=== PATIENT | male | born 1940 | race Caucasian/White ===

== ENCOUNTER → 2016-07-17 | Outpatient (CLI) | payer OTHER ==
[~2016-07-17] MED LIST: ASPI81TA21 PO; ATEN25TA PO; ATOR-24 PO; CIPR-255 PO; DLCSR120 PO; INSDGI SC; LISI-725 PO; METF-383 PO; NVLGI SC; OMEP20CA59 PO; OXYC-57 PO; TIOTCAP INH
[2016-07-17 13:10] LABS: ESTIMATED AVERAGE GLUCOSE 126 mg/dl; HA1C FLAG Normal (Normal)
[2016-07-17 13:33] LABS: BLOOD UREA NITROGEN 34 mg/dl (7-18); BUN/CREATININE RATIO 24.2 (10-20); GLUCOSE 145 mg/dl (70-99); SODIUM 139 mmol/L (136-145)
[2016-07-17 13:34] LABS: ALT/SGPT 17 U/L (12-78); AST/SGOT 15 U/L (15-37); CALCIUM 9.3 mg/dl (8.5-10.1); CARBON DIOXIDE 27 mmol/L (21-32); CHLORIDE 107 mmol/L (98-107); POTASSIUM 5.6 mmol/L (3.5-5.1)
[2016-07-17 13:39] LABS: ALB/GLOB RATIO 0.7 (0.9-2); ALKALINE PHOSPHATASE 140 U/L (45-117)
== END | disposition home or self-care (01) ==
LOC: C.LABPVFM 10:23
PROVIDERS: ATTEND Nurse Practitioner Adult Health
DX: E11.8 Type 2 diabetes mellitus with unspecified complications (principal); I10 Essential (primary) hypertension; E87.5 Hyperkalemia

== ENCOUNTER → 2016-07-24 | Outpatient (CLI) | payer OTHER | END | disposition home or self-care (01) | LOC: C.LABPVFM 09:14 | PROVIDERS: ATTEND Family Medicine | DX: E87.5 Hyperkalemia (principal) ==

== ENCOUNTER 2016-08-29 13:31 | Inpatient (IN) | payer OTHER ==
[~2016-08-29] VITALS: Ht 180.3 cm; Wt 128.0 kg
[~2016-08-29 13:31] MED LIST changes: -CIPR-255 PO; -OXYC-57 PO
[2016-08-29] MEDS ORDERED: MoRPHine SULFATE 10 MG/ML CARP/VIAL IV STA (14:22)
[2016-08-29] MEDS ORDERED: ONDANSETRON INJ 2 MG/ML 2 ML VIAL IV STA (14:22)
[2016-08-29] MEDS ORDERED: SODIUM CHLORIDE 0.9% 1000ML 1,000 ML IV STA (14:22)
[2016-08-29 14:30] LABS: BASO % 0.1 %; BASO ABS # 0.01 K/uL (0-0.2); COMPLETE YES; EOS % 1.5 %; HEMATOCRIT 42.9 % (42-52); IG% 0.2 %; LYMPH % 11.4 %; LYMPH ABS # 0.92 K/uL (1.2-3.4); MEAN CELL VOLUME 94.1 fL (80-100); MEAN CORPUSCULAR HEMOGLOBIN 31.6 pg (25-34); MEAN CORPUSCULAR HGB CONC 33.6 g/dl (32-36); MEAN PLATELET VOLUME 10.4 fL (7.4-10.4); MONO % 7.8 %; PLATELET COUNT 207 K/uL (130-400); RED BLOOD COUNT 4.56 M/uL (4.7-6.1)
[2016-08-29 14:41] LABS: BUN/CREATININE RATIO 25.7 (10-20); CALCIUM 9.2 mg/dl (8.5-10.1); CREATININE 1.4 mg/dl (0.60-1.40); POTASSIUM 4.9 mmol/L (3.5-5.1)
[2016-08-29 15:03] LABS: URINE APPEARANCE CLEAR (CLEAR); URINE BILIRUBIN NEG (NEG); URINE COLOR YELLOW; URINE NITRITE NEG (NEG); URINE SPECIFIC GRAVITY 1.023 (1.000-1.030); UROBILINOGEN NEG (NEG)
[2016-08-29 15:10] LABS: MANUAL MICROSCOPIC REQUIRED? NO; REVIEW REQ? NO
--- NOTE | 2016-08-29 15:18 | DIAGNOSTIC IMAGING REPORT ---
ABDOMEN 2VIEW W/PA CHEST RTN CLINICAL HISTORY: ABDOMINAL PAIN/GI nausea COMPARISON STUDY: 05/29/2015 FINDINGS: Chronic parenchymal fibrosis stable from the prior exam. Unchanged emphysematous change with inflammation of the mid to upper lung regions bilaterally. No evidence for new or superimposed acute infiltrate. Nonobstructive bowel pattern. IMPRESSION: Extensive chronic and emphysematous change. No acute process. Negative abdomen Electronically signed by: Pritesh Jordan M.D. 08/29/2016 3:17 PM Dictated Date/Time: 08/29/2016 3:16 PM
[2016-08-29] MEDS ORDERED: HYDROmorphone INJ 1 MG/ML SYR IV STA (15:27)
[2016-08-29] MEDS ORDERED: OPTIRAY 320 IV PRN (17:30)
--- NOTE | 2016-08-29 18:13 | DIAGNOSTIC IMAGING REPORT ---
CT OF THE ABDOMEN AND PELVIS WITH CONTRAST CLINICAL HISTORY: Abdominal pain radiating into back. Distention. COMPARISON STUDY: Chest CT May 30, 2015. TECHNIQUE: Following IV administration of 115 mL of Optiray-320, axial images of the abdomen and pelvis were obtained from the lung bases to the proximal femurs. Images were reviewed in the axial, sagittal, and coronal planes. IV contrast was administered without complication. Oral contrast was administered. CT DOSE: 1689.87 mGy.cm FINDINGS: Visualized portions of the lower chest demonstrate moderate cardiomegaly. A mildly enlarged subcarinal lymph node is partially imaged on since exam but is similar to CT of May 30, 2015. Bullous emphysema is noted within visualized portions of the lungs with traction bronchiectasis and possible honeycombing. A few right lower lobe nodules are noted. These measure up to 1.4 cm. These are indeterminate. No pneumatosis, free air or portal venous gas is present. There is mild intrahepatic biliary ductal dilatation. There is a diverticulum of the second portion of the duodenum. There are gallstones within the gallbladder. There is mild pericholecystic infiltration. The spleen, adrenal glands are unremarkable. A 1 cm right renal cyst is noted. There is moderate renal cortical thinning. There is no hydronephrosis. There is no evidence for a bowel obstruction. The appendix is normal. There is no pelvic lymphadenopathy. There is no peripancreatic infiltration. There is a splenule. IMPRESSION: 1. Cholelithiasis with mild pericholecystic infiltration. The findings raise the possibility of acute cholecystitis. A hepatobiliary scan could be obtained as indicated. 2. Severe bullous emphysema within visualized portions of the lungs with traction bronchiectasis and possible honeycombing. Several indeterminate right lower lobe nodules measuring up to 1.4 cm. A follow-up nonemergent dedicated chest CT is recommended. 3. Borderline biliary ductal dilatation which could be correlated with obstructive liver function tests. Electronically signed by: Kostas Allen M.D. 08/29/2016 6:11 PM Dictated Date/Time: 08/29/2016 6:01 PM
[2016-08-29] MEDS ORDERED: PIPERACILLIN/TAZOBACTAM 4.5 GM/100ML D5W IV STA (18:48)
--- NOTE | 2016-08-29 18:48 | EMERGENCY ROOM VISIT NOTE ---
ED Visit Note First contact with patient: 14:03 Patient was seen by our PA/CHEESEMAKING LABORER. I was involved in the patient's care and did evaluate the patient myself. I was involved in the care throughout the ER stay. The patient presents with abdominal pain. Workup here suggests early acute cholecystitis. Surgery has been contacted. Admission/observation was advised.
[2016-08-29] MEDS ORDERED: HydrALAZINE HCL 20 MG/ML VIAL IV PRN (19:00)
[2016-08-29] MEDS ORDERED: LORAZEPAM 2 MG/ML 1 ML VIAL IV PRN ×2 (19:00)
[2016-08-29] MEDS ORDERED: ALBUT/IPRATROP 3MG/0.5MG NEB 3 ML VIAL INH PRN (19:00)
[2016-08-29] MEDS ORDERED: MoRPHine SULFATE 4 MG/ML 1 ML CARP\\VIAL IV PRN (19:00)
[2016-08-29] MEDS ORDERED: ONDANSETRON INJ 2 MG/ML 2 ML VIAL IV PRN (19:00)
[2016-08-29] MEDS ORDERED: HYDROmorphone INJ 0.5 MG/0.5 ML SYR IV PRN (19:30)
[2016-08-29] MEDS ORDERED: GLUCOSE 40% GEL 15 GM TUBE PO PRN (20:00)
[2016-08-29] MEDS ORDERED: PIPERACILL/TAZOBAC CONSULT ACTIVE PRN (20:00)
[2016-08-29] MEDS ORDERED: GLUCOSE 10 TABS/TUBE PO PRN (20:00)
[2016-08-29] MEDS ORDERED: DEXTROSE 50% 50 ML SYR IV PRN (20:00)
[2016-08-29] MEDS ORDERED: GLUCAGON FOR INJ 1 MG VIAL SQ PRN (20:00)
[2016-08-29] MEDS: HYDROmorphone INJ 1 MG/ML SYR IV PRN (20:31)
[2016-08-29 20:41] VITALS: BP 137/71; PULSE 77; TEMP 36.4; O2SAT 95
[2016-08-29] MEDS ORDERED: HEPARIN SOD 5000 UNIT/0.5 ML CARP SQ ONE (21:00)
[2016-08-29] MEDS ORDERED: INSULIN GLARGINE PER SC SCH (21:00)
[2016-08-29] MEDS ORDERED: PIPERACILL/TAZOBAC IV 4.5 GM in DEXTROSE 5% 100ML 100 ML IV ONE (21:00)
[2016-08-29] MEDS ORDERED: LORAZEPAM INJ 1 MG in SYRINGE 0.5 ML IV PRN (21:00)
[2016-08-29 21:30] VITALS: PULSE 80; O2SAT 92
[2016-08-29] MEDS: ALBUT/IPRATROP 3MG/0.5MG NEB 3 ML VIAL INH SCH (21:30)
[2016-08-29 22:00] VITALS: Ht 180.3 cm; Wt 128.0 kg
--- NOTE | 2016-08-29 22:30 | DIAGNOSTIC IMAGING REPORT ---
ABDOMINAL ULTRASOUND, RIGHT UPPER QUADRANT HISTORY: Right upper quadrant pain. Abnormal CT scan. COMPARISON: CT of the abdomen and pelvis August 29, 2016. FINDINGS: This exam is compromised by suboptimal penetration. No hepatic lesions are identified. There are multiple gallstones within the gallbladder. No sonographic Coy sign was elicited. Gallbladder wall thickness was at the upper limits of normal. There was no pericholecystic fluid. The pancreas was obscured. No right hydronephrosis was noted. Common bile duct was at the upper limits of normal for caliber. IMPRESSION: 1. Cholelithiasis. No significant gallbladder wall thickening. No sonographic Coy sign. A hepatobiliary scan could be obtained as indicated. 2. Obscured pancreas. Study compromised by suboptimal penetration. Electronically signed by: Kostas Allen M.D. 08/29/2016 10:29 PM Dictated Date/Time: 08/29/2016 10:26 PM
[2016-08-29] MEDS: SODIUM CHLORIDE 0.9% 1000ML 1,000 ML IV SCH (22:34)
[2016-08-29] MEDS: PANTOprazole SOD 40 MG TAB PO SCH (22:35)
[2016-08-29] MEDS: INSULIN GLARGINE SOLOSTAR 100 UNITS/ML 3 ML PEN SC SCH (22:37)
[2016-08-29 23:28] VITALS: BP 134/63; PULSE 89; TEMP 36.5; O2SAT 96
[2016-08-29 23:52] VITALS: PULSE 86; O2SAT 96
[2016-08-30] VITALS (14 sets, daily range): BP systolic 109–165; BP diastolic 66–95; PULSE 68–94; TEMP 36.4–36.6; O2SAT 91–97
--- NOTE | 2016-08-30 00:23 | HISTORY & PHYSICAL EXAMINATION ---
DATE OF ADMISSION: 08/29/2016 Seen in the Emergency Room on 08/29/2016 at approximately 7:15 in the evening. SUMMARY: I was asked by the PA in the ER to see Abhinav Carlson, regarding possibility of gallbladder problem with acute cholecystitis. Dr. Fleming had also been asked to see him because of the past medical history this gentleman has which includes obesity, pulmonary fibrosis, insulin-dependent diabetic. As I saw the gentleman now, he is resting comfortably with no real abdominal discomfort. His daughter and son are at the bedside. The story was that last night he had a steak and this morning he started having abdominal pain going through the back. It progressively got worse that he thought he was having a heart attack and came into the Emergency Room. On the Emergency Room findings was, they obtained a CAT scan, think it was diffuse abdominal pain and back pain and found to have cholelithiasis with some inflammatory changes, really could not tell any wall thickness as far as the gallbladder, had some mild biliary dilatation. The patient has been a patient of Dr. 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 His past cardiac history included a heart attack at age 50, he is 76 now and he states that he had balloons at that time and repeated, he has never had any more cardiac issues, although he does see Dr. Silva on routine basis. Other than that, he has had no previous abdominal surgeries. Overall, enjoying pretty good health. MEDICATIONS: Takes routinely is aspirin, atenolol, Lipitor, Dilacor, insulin, Zestril, metformin, Prilosec, and Spiriva. ALLERGIES: He has no known allergies. SOCIAL HISTORY: He is a nonsmoker or drinker. REVIEW OF SYSTEMS: He denies any changes in weight, any GI or symptoms. PHYSICAL EXAMINATION: GENERAL: As I see him now, see Abhinav in no acute distress. As stated, he has a very large abdomen with a BMI of 40. HEAD: Normocephalic. EYES: PERRLA. Sclerae nonicteric. NECK: There is no cervical lymphadenopathy. Carotid are without any bruits. He states he has had carotid Dopplers in the past that never show any blockage and he denies any neurological deficits or TIAs. LUNGS: Distant breath sounds. HEART: Normal sinus rhythm without any murmur. ABDOMEN: Diffuse is distended. He has got significant right upper quadrant guarding but no rebound at this time. There is no appreciable hernias. EXTREMITIES: He apparently has a +1 or +2 pedal edema, +1 on the left foot and possibly +2 on the right and he takes a diuretic regularly. ASSESSMENT AND PLAN: At this time, the patient will be admitted to be evaluated by the medical service and will tentatively plan for surgery tomorrow including laparoscopic cholecystectomy, intraoperative cholangiogram. His white count is 8.10 without a significant left shift, hemoglobin is 14.4. The chemistries show a bilirubin, AST and ALT is normal, but the alkaline phosphatase is slightly elevated. With the back pain, the possibility that he may have passed a stone, although his lipase is 90. He is scheduled to have an ultrasound at this time and we will evaluate if there is any significant ductal dilatation, but we will plan to do a laparoscopic cholecystectomy with an intraoperative cholangiogram for tomorrow. Risks and complications were explained to the patient and his family would like to proceed accordingly.
[2016-08-30] MEDS: INSULIN ASPART 100 UNITS/ML 3 ML PEN SC SCH ×4 (00:44→20:13)
[2016-08-30] MEDS: PIPERACILL/TAZOBAC IV 4.5 GM in DEXTROSE 5% 100ML 100 ML IV SCH ×3 (01:35→19:49)
[2016-08-30] MEDS: HYDROmorphone INJ 1 MG/ML SYR IV PRN ×3 (06:10→21:28)
--- NOTE | 2016-08-30 07:03 | HISTORY & PHYSICAL EXAMINATION ---
DATE OF ADMISSION: 08/29/2016 CHIEF COMPLAINT: Abdominal pain. ADMITTING DIAGNOSIS: Acute cholecystitis. HISTORY OF PRESENT ILLNESS: Mr. Carlson is a 76-year-old male who presented to the ER complaining of mid quadrant abdominal pain. The patient states this was acute onset approximately 2-4 hours prior to presentation. The pain is constant but waxes and wanes with intensity. He does not describe any exacerbating or remitting symptoms. He has never had a previous or similar pain. The patient has had no change in bowel function, change in color, consistency of his stool, nor he has any urinary changes. After evaluation, patient had a CT scan of the abdomen which showed acute cholecystitis with pericholecystic fat stranding. The gallbladder wall thickness was not described and ultrasound is currently pending. The patient has been seen by surgery in the Emergency Department and there is a tentative plan for possible cholecystectomy in the next few days. PAST MEDICAL HISTORY: Idiopathic pulmonary fibrosis with chronic hypoxic respiratory failure, wearing 2 liters of oxygen. He also has obstructive sleep apnea, wearing CPAP at night at 14 cm of water; diabetes type 2; coronary artery disease; dyslipidemia; hypertension; GERD; history of diverticulosis. MEDICATIONS: On presentation are aspirin 81 a day, atenolol 25 mg a day, atorvastatin 40 mg a day, diltiazem XR 120 mg a day, Lantus 36 units at bedtime and sliding scale, lisinopril has been reduced to 10 mg a day, metformin 850 a day, Spiriva 1 inhalation a day, and omeprazole 20 a day. SOCIAL HISTORY: The patient does have a [id number] history of smoking, he currently has quit. Does not drink alcohol. He is accompanied by his family. FAMILY HISTORY: Diabetes, hypertension, heart disease, and lung disease. REVIEW OF SYSTEMS: Ten systems were reviewed and are negative unless listed above. PHYSICAL EXAMINATION: GENERAL: He is an obese gentleman with a BMI of 39. VITAL SIGNS: His temperature 36.6, pulse 72, respiration rate 20, BP 153/63, O2 sat 90 on room air. HEENT: PERRL, EOMI. He has a very small posterior pharynx. NECK: Without lymphadenopathy. Trachea is midline. HEART: Distant, regular without murmurs. LUNGS: Actually have very few crackles at the bases, otherwise have reasonable air movement with no focal air loss or wheeze. ABDOMEN: Protuberant. He has hypoactive bowel sounds. He is uncomfortable in the right upper quadrant with a positive Coy sign; however, there is no rebound tenderness. There is some voluntary guarding. He has a bruise in his abdomen from insulin injection. BACK: His back is tender to movement, most in the right infrascapular area. His spine is nontender. He has no CV angle tenderness. EXTREMITIES: Without cyanosis, clubbing or edema. SKIN: He has cyanotic nailbeds despite his oximetry reading 96%. NEUROLOGICALLY: He is awake, alert and appropriate. Cranial nerves II-XII are intact. Equal symmetrical strength and sensation. LABORATORY DATA: White count of 8, H\T\H 14 and 42, platelet count 207. His BUN and creatinine of 36 and 1.4, his total bilirubin is however normal at 0.4. His glucose is slightly elevated at 177, lipase is normal. Urinalysis is unremarkable. The CT scan shows pericholecystic fluid, changes of COPD in his lungs. He had chest and abdomen x-ray which did show chronic COPD. An EKG was ordered but is currently pending at my time of dictation. Anesthesia was consulted for possible preoperative risk minimizing for this patient. ASSESSMENT: A 76-year-old male with apparent acute cholecystitis, here with abdominal pain. PLAN: The patient for his acute cholecystitis will be kept n.p.o. He will be given Zosyn as an antibiotic and pain control with parenteral hydromorphone. For his diabetes, his Lantus will be reduced to 50% and sliding scale insulin may be employed. He is currently n.p.o. For his cardiovascular disease, he will be maintained on his atenolol and diltiazem and lisinopril. He, however, takes 10 mg and not 20 mg as mentioned above and that will be amended. His atorvastatin will be held. For his idiopathic pulmonary fibrosis, Spiriva will be continued; however, he will also be given DuoNebs. If not mentioned above, his metformin has been held. He is given 1 dose of DVT prevention heparin subQ 5000 this evening as he is not going to the OR until tomorrow or later if he goes at all. This patient is a full code.
[2016-08-30] MEDS: SODIUM CHLORIDE 0.9% 1000ML 1,000 ML IV SCH ×3 (07:07→19:50)
[2016-08-30 07:35] LABS: HEMATOCRIT 38.8 % (42-52); MEAN CELL VOLUME 93.5 fL (80-100); MEAN CORPUSCULAR HEMOGLOBIN 31.1 pg (25-34); MEAN CORPUSCULAR HGB CONC 33.2 g/dl (32-36); MEAN PLATELET VOLUME 10.5 fL (7.4-10.4); PLATELET COUNT 190 K/uL (130-400); RED BLOOD COUNT 4.15 M/uL (4.7-6.1); WHITE BLOOD COUNT 16.98 K/uL (4.8-10.8)
[2016-08-30] MEDS: ALBUT/IPRATROP 3MG/0.5MG NEB 3 ML VIAL INH SCH ×4 (07:35→20:09)
[2016-08-30 07:51] LABS: BUN/CREATININE RATIO 23.9 (10-20); CALCIUM 8.3 mg/dl (8.5-10.1); CREATININE 1.6 mg/dl (0.60-1.40); POTASSIUM 5.3 mmol/L (3.5-5.1)
[2016-08-30 07:54] LABS: ALB/GLOB RATIO 0.6 (0.9-2)
[2016-08-30] MEDS ORDERED: MIDAZOLAM HCL 1 MG/ML 2ML VIAL ONE (07:58)
[2016-08-30] MEDS ORDERED: ROCURONIUM BROMIDE 10 MG/ML 5 ML VIAL ONE (07:58)
[2016-08-30] MEDS ORDERED: GLYCOPYRROLATE INJ 0.2 MG/ML VIAL ONE (07:58)
[2016-08-30] MEDS ORDERED: NEOSTIGMINE METHYLSULFATE 5 MG/5 ML SYR ONE (07:58)
[2016-08-30] MEDS ORDERED: DEXAMETHASONE SOD INJ 4 MG/ML VIAL ONE (07:58)
[2016-08-30] MEDS ORDERED: LIDOCAINE HCL 2% 2 ML VIAL (20MG/ML) ONE (07:58)
[2016-08-30] MEDS ORDERED: ONDANSETRON INJ 2 MG/ML 2 ML VIAL ONE (07:58)
[2016-08-30] MEDS ORDERED: FENTANYL CITRATE INJ 50 MCG/1 ML 2 ML VIAL ONE ×2 (07:58→09:51)
[2016-08-30] MEDS ORDERED: PROPOFOL IV EMULSION 10 MG/ML 20 ML VIAL IV ONE (07:58)
--- NOTE | 2016-08-30 07:58 | History & Physical Bridge Note ---
H&P Re-Evaluation Bridge Note: I have examined the patient, reviewed the History & Physical and in the interval since the performance of the History & Physical I have noted the following changes of clinical significance: No changes noted note from this morning dictated not typed yet, pt in preop area as per my due note proceed with angelina navarrete
[2016-08-30] MEDS ORDERED: PNEUMOCOCCAL POLYSACCHARIDES 25 MCG/0.5 ML VIAL/SYR IM. ONE (08:00)
[2016-08-30] MEDS ORDERED: PNEUMOCOCCAL ADMINISTRATION CHARGE ONE (08:00)
--- NOTE | 2016-08-30 08:02 | Clinical Documentation Query ---
SAVI Sewell : CLINICAL DOCUMENTATION QUERY Patient is a 76 year old male admitted for the evaluation and treatment of acute cholecystitis. Admission BUN, creatinine, and estimated GFR were 36 mg/dl, 1.40 mg/dl, and 49 ml/min. Values this a.m. (08/30) are 38 mg/dl, 1.60 mg/dl, and 42 ml/min. There is no documentation of CKD but estimated GFR range dating to 09/24/14 is 42-78 ml/min. He is recieving IVF of NSS at 100 ml/hr and being monitored with serial chemistries. 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 Clinical Indicators: As above Treatment:He is recieving IVF of NSS at 100 ml/hr and being monitored with serial chemistries Risk Factors: Age, poor intake, DM Please clarify and document your clinical opinion in the progress notes and discharge summary. Terms such as "probable", "suspected", "likely", "questionable", "possible", or "still to be ruled out" are acceptable. IF IN AGREEMENT, YOU MUST DOCUMENT ABOVE DIAGNOSTIC STATEMENT IN DAILY PROGRESS NOTES AND DISCHARGE SUMMARY. This document is not part of the patient's record. Thank You, Matthew Guan, BARB [phone]
[2016-08-30] MEDS ORDERED: CONRAY 60% 50 ML VIAL ONE (08:07)
[2016-08-30] MEDS ORDERED: LIDOCAINE/EPINEPHRINE 1% 20 ML VIAL ONE (08:07)
[2016-08-30] MEDS ORDERED: BUPIVACAINE 0.5 % 5 MG/1 ML MPF 30ML VIAL ONE (08:08)
--- NOTE | 2016-08-30 08:30 | SURGERY PROGRESS NOTE ---
DATE: 08/30/2016 Abhinav had an ultrasound last night, it pretty much confirms that ct scan and clinical basis for acute cholecystitis. He is resting comfortably. He does have some right upper quadrant guarding as he had. His last vitals showed a temperature of 36.6, pulse 68, respirations 18, blood pressure 109/95 and O2 sats 97 on room air. I\T\O; he had 150 of urine. Laboratory; his white count is up to 16.98 and hemoglobin is 12.9. The PRPs are pending. At this point, we will proceed with surgery this morning. Risks and complications were explained to the patient of bleeding, infection, converting to an open procedure and he understands of the laparoscopic cholecystectomy, cholangiogram, possible open . STEPHANIE
[2016-08-30] MEDS ORDERED: LISINOPRIL 20 MG TAB PO SCH (09:00)
--- NOTE | 2016-08-30 09:18 | DIAGNOSTIC IMAGING REPORT ---
INTRAOPERATIVE CHOLANGIOGRAM HISTORY: Post cholecystectomy. FLUOROSCOPY TIME: 8 seconds. 5 fluoroscopic spot images. FINDINGS: Fluoroscopy was provided for an intraoperative cholangiogram status post cholecystectomy. Contrast was injected through the cystic duct remnant. The common bile duct is normal in course and caliber. There are no filling defects seen within the common bile duct to suggest a retained stone. Contrast extends into the small bowel. There is no intrahepatic bile duct dilatation. IMPRESSION: Fluoroscopy provided for an intraoperative cholangiogram status post cholecystectomy. No filling defects within the common bile duct. Electronically signed by: Boy Le M.D. 08/30/2016 9:16 AM Dictated Date/Time: 08/30/2016 9:16 AM
--- NOTE | 2016-08-30 09:28 | [facility] Post Operative Brief Note ---
Immediate Operative Summary Operative Date Aug 30, 2016. Pre-Operative Diagnosis acute cholecystitis cholelithiasis Post-Operative Diagnosis acute cholecystitis (gangrenous) Procedure(s) Performed laparoscopic cholecystectomy, intraoperative cholangiogram Surgeon Dr Manish Colorado Splicing Machine Operator Surgeon(s) Brock Patricio PA-C Estimated Blood Loss 15cc Findings necrotic gallbladder Specimens A: Gallbladder Culture #1: gallbladder Drains #19 malka per stab
--- NOTE | 2016-08-30 09:47 | OPERATIVE REPORT ---
DATE OF OPERATION: 08/30/2016 PREOPERATIVE DIAGNOSIS: Acute and chronic cholecystitis, cholelithiasis. POSTOPERATIVE DIAGNOSIS: Same with gangrenous cholecystitis. PROCEDURE: Laparoscopic cholecystectomy, intraoperative cholangiogram. SURGEON: Dr. [place]. TITRATOR: Brock Parisi PA-C. OPERATION AND FINDINGS: SUMMARY: The patient was brought into the operating room theater. The abdomen was prepped with Betadine solution and properly draped. We made a small transverse incision above the umbilicus sufficient enough to place a Veress needle followed by CO2 followed by a 5 mm trocar. Point of entry inspected and no injury identified. Under direct visualization, we placed a 5 mm epigastric port with preemptive local analgesia of 0.5 Marcaine and 2 subcostal ports. The gallbladder could not be seen. It seemed like he had a drape of omentum over it. We were able then to try to grasp it, but it was very thick walled, unable to really grasp it sufficiently therefore we aspirated initially and just got some dark bowel. Even with that, the wall was pretty thickened that the large graspers could barely hold onto it but it seemed to dissect out just by the grabber and we could see that the wall itself of the gallbladder was patchy necrosis. We at this point, were able then to finally go up towards the triangle of Calot. Most of the dissection was done bluntly with the sucker, significant amount of edema was identified. We identified the cystic duct which we clipped proximally. A small opening in the cystic duct was made. A #4 urethral catheter transversed the abdominal wall and an Angiocath was positioned. We took a few x-rays. The common bile duct did not have any filling defect, however the distal common bile duct was slow to empty into the duodenum. I thought there was a little rat-tailing sign and possibility of some debris, but we really did not see any filling defects per se. At this point the cholangiocath was removed and the cystic duct was doubly clipped and divided securely. The gallbladder was then removed. Most of the dissection taking out the gallbladder from the liver was done bluntly since the posterior wall and edema made it easier. We identified an artery going up towards the gallbladder into the liver that we doubly clipped and divided. Gallbladder in the uppermost aspect towards the fundus we could see that there was strictly adherent to the liver in that area. We made sure that we took all the gallbladder wall out entering the liver just slightly cauterized the bleeding. Gallbladder was placed in an Endopouch and taken out intact through the epigastric port. We needed to enlarge the skin incision a little bit to get it out. We did take cultures of it. The subhepatic and suprahepatic area was then checked for hemostasis quite satisfactorily. We then placed a Jeffery drain in the subhepatic area and taken out through the lateral port site, attached to skin edges with 2-0 silk suture. We placed the camera in subcostal port to visualize the umbilical opening. There were no adhesions to the anterior abdominal wall there. Individual trocars removed, last umbilical trocar. Wounds were closed with fascial stitch 0 Vicryl for the epigastric area, the other ones 4-0 Monocryl. Steri-Strips applied. The procedure was tolerated well by the patient. Estimated blood loss approximately 15 mL. The patient was taken to recovery room in good condition. I attest to the content of the Intraoperative Record and any orders documented therein. Any exceptio ns are noted below.
[2016-08-30] MEDS ORDERED: ALBUTEROL HFA INHALER 8.5 GM INH ONE (09:54)
[2016-08-30] MEDS ORDERED: EpHEDrine SULFATE INJ 50 MG/ML AMP IV PRN (10:00)
[2016-08-30] MEDS ORDERED: ONDANSETRON INJ 2 MG/ML 2 ML VIAL IV PRN (10:00)
[2016-08-30] MEDS ORDERED: ATROPINE SULFATE 0.1 MG/ML 5ML SYR IV PRN (10:00)
[2016-08-30] MEDS ORDERED: FENTANYL CITRATE INJ 50 MCG/1 ML 2 ML VIAL IV PRN (10:00)
[2016-08-30] MEDS: TIOTROPIUM BROMIDE 5 PUFF/90 MCG INH INH SCH (10:45)
[2016-08-30] MEDS: LISINOPRIL 10 MG TAB PO SCH ×2 (10:46→14:03)
[2016-08-30] MEDS: DILTIAZEM HCL 120 MG ER CAP PO SCH ×2 (10:46→14:03)
[2016-08-30] MEDS: HEPARIN SOD 5000 UNIT/0.5 ML CARP SQ SCH ×2 (10:50→21:33)
[2016-08-30] MEDS: HYDROmorphone INJ 0.5 MG/0.5 ML SYR IV PRN ×2 (11:00→13:53)
--- NOTE | 2016-08-30 11:44 | Anesthesiology Progress Note ---
Anesthesia Post Op Note Date & Time Aug 30, 2016 at 11:43 Vital Signs Vital Signs Past 12 Hours Date Time Temp Pulse Resp B/P Pulse Ox O2 Delivery O2 Flow Rate FiO2 08/30/16 11:23 87 18 92 Nasal Cannula 2.0 08/30/16 11:00 81 18 155/79 93 Room Air 08/30/16 10:36 36.5 85 18 148/72 94 Nasal Cannula 3.0 08/30/16 10:10 37.3 83 20 125/59 94 Nasal Cannula 4 08/30/16 10:00 87 20 141/58 94 Nasal Cannula 4 08/30/16 09:50 88 20 142/58 94 Nasal Cannula 5 08/30/16 09:40 95 22 152/54 94 Nasal Cannula 5 08/30/16 09:31 37.1 92 22 139/62 97 Nasal Cannula 5 08/30/16 07:35 Nasal Cannula 2.0 08/30/16 07:35 87 18 92 Nasal Cannula 2.0 08/30/16 07:08 36.6 68 18 109/95 97 Room Air 08/29/16 23:52 86 96 2.0 Notes Mental Status: alert / awake / arousable, participated in evaluation Pt Amnestic to Procedure: Yes Nausea / Vomiting: adequately controlled Pain: adequately controlled Airway Patency, RR, SpO2: stable & adequate BP & HR: stable & adequate Hydration State: stable & adequate Anesthetic Complications: no major complications apparent
--- NOTE | 2016-08-30 14:25 | Hospitalist Progress Note ---
Hospitalist Progress Note Date of Service Aug 30, 2016. (Candida Strange PA-C) Subjective Pt evaluation today including: conversation w/ patient, physical exam, chart review, lab review, review of studies, review of inpatient medication list Patient complaining of some abdominal pain in the right upper quadrant. He denies any nausea. He has not yet passed gas or had any bowel movements since the surgery. He just got back from surgery approximately 2 hours ago. He denies any fever or chills. No chest pain or pressure. No difficulty breathing. Additional Comments: 6 system review negative. Please see pertinent positives in the history of present illness section. (Candida Strange PA-C) Objective Vital Signs Date Time Temp Pulse Resp B/P Pulse Ox O2 Delivery O2 Flow Rate FiO2 08/30/16 13:30 83 16 165/79 93 Nasal Cannula 3.0 08/30/16 12:30 84 18 155/79 94 Nasal Cannula 3.0 08/30/16 11:30 87 18 157/77 93 Nasal Cannula 3.0 08/30/16 11:23 87 18 92 Nasal Cannula 2.0 08/30/16 11:00 81 18 155/79 93 Nasal Cannula 3.0 08/30/16 10:36 36.5 85 18 148/72 94 Nasal Cannula 3.0 08/30/16 10:30 94 Nasal Cannula 3.0 08/30/16 10:10 37.3 83 20 125/59 94 Nasal Cannula 4 08/30/16 10:00 87 20 141/58 94 Nasal Cannula 4 08/30/16 09:50 88 20 142/58 94 Nasal Cannula 5 08/30/16 09:40 95 22 152/54 94 Nasal Cannula 5 08/30/16 09:31 37.1 92 22 139/62 97 Nasal Cannula 5 08/30/16 07:35 Nasal Cannula 2.0 08/30/16 07:35 87 18 92 Nasal Cannula 2.0 08/30/16 07:08 36.6 68 18 109/95 97 Room Air 08/29/16 23:52 86 96 2.0 08/29/16 23:28 36.5 89 16 134/63 96 CPAP 08/29/16 23:25 CPAP 08/29/16 22:00 Nasal Cannula 2.0 08/29/16 21:39 36.6 80 18 153/63 92 08/29/16 21:30 80 18 92 Nasal Cannula 2.0 08/29/16 20:41 36.4 77 18 137/71 95 Nasal Cannula 2.0 08/29/16 20:00 36.6 72 20 153/63 98 08/29/16 19:08 72 08/29/16 18:32 68 20 153/63 98 Room Air 08/29/16 15:30 58 20 114/54 98 Nasal Cannula 2.0 08/29/16 14:55 50 (Candida Strange PA-C) Physical Exam General Appearance: no apparent distress ENT: + pertinent finding (oral mucosa fairly dry) Neck: no JVD Respiratory/Chest: lungs clear Cardiovascular: regular rate, rhythm Abdomen: soft, + distended (mildly distended.), + pertinent finding ( tenderness to palpation noted in the right upper quadrant. No guarding or rebound tenderness. Bowel sounds hypoactive.) Extremities: + pertinent finding (trace pitting edema in the lower extremities bilaterally without any appreciated erythema, tenderness or warmth.) Neurologic/Psychiatric: no motor/sensory deficits, oriented x 3 Skin: warm/dry (Candida Strange, LATRICE-C) Laboratory Results 08/30/16 07:05 08/30/16 07:05 Test 08/29/16 14:50 08/30/16 07:05 08/30/16 11:51 Urine Color YELLOW Urine Appearance CLEAR (CLEAR) Urine pH 5.0 (4.5-7.5) Urine Specific Letts 1.023 (1.000-1.030) Urine Protein NEG (NEG) Urine Glucose (UA) NEG (NEG) Urine Ketones NEG (NEG) Urine Occult Blood NEG (NEG) Urine Nitrite NEG (NEG) Urine Bilirubin NEG (NEG) Urine Urobilinogen NEG (NEG) Urine Leukocyte Esterase NEG (NEG) Red Blood Count 4.15 M/uL (4.7-6.1) Mean Corpuscular Volume 93.5 fL (80-100) Mean Corpuscular Hemoglobin 31.1 pg (25-34) Mean Corpuscular Hemoglobin Concent 33.2 g/dl (32-36) RDW Standard Deviation 47.1 fL (36.4-46.3) RDW Coefficient of Variation 13.9 % (11.5-14.5) Mean Platelet Volume 10.5 fL (7.4-10.4) Anion Gap 10.0 mmol/L (3-11) Est Creatinine Clear Calc Drug Dose 54.4 ml/min Estimated GFR () 48.1 Estimated GFR (Non- 41.5 BUN/Creatinine Ratio 23.9 (10-20) Calcium Level 8.3 mg/dl (8.5-10.1) Total Bilirubin 0.6 mg/dl (0.2-1) Aspartate Amino Transf (AST/SGOT) 11 U/L (15-37) Alanine Aminotransferase (ALT/SGPT) 15 U/L (12-78) Alkaline Phosphatase 103 U/L (45-117) Total Protein 6.5 gm/dl (6.4-8.2) Albumin 2.5 gm/dl (3.4-5.0) Globulin 4.0 gm/dl (2.5-4.0) Albumin/Globulin Ratio 0.6 (0.9-2) Bedside Glucose 221 mg/dl (70-99) Last 24 Hours Test 08/29/16 14:50 08/29/16 20:36 08/30/16 00:04 08/30/16 05:51 Urine Color YELLOW Urine Appearance CLEAR Urine pH 5.0 Urine Specific Letts 1.023 Urine Protein NEG Urine Glucose (UA) NEG Urine Ketones NEG Urine Occult Blood NEG Urine Nitrite NEG Urine Bilirubin NEG Urine Urobilinogen NEG Urine Leukocyte Esterase NEG Bedside Glucose 137 mg/dl 186 mg/dl 162 mg/dl Test 08/30/16 07:05 08/30/16 09:54 08/30/16 11:51 White Blood Count 16.98 K/uL Red Blood Count 4.15 M/uL Hemoglobin 12.9 g/dL Hematocrit 38.8 % Mean Corpuscular Volume 93.5 fL Mean Corpuscular Hemoglobin 31.1 pg Mean Corpuscular Hemoglobin Concent 33.2 g/dl RDW Standard Deviation 47.1 fL RDW Coefficient of Variation 13.9 % Platelet Count 190 K/uL Mean Platelet Volume 10.5 fL Sodium Level 138 mmol/L Potassium Level 5.3 mmol/L Chloride Level 107 mmol/L Carbon Dioxide Level 21 mmol/L Anion Gap 10.0 mmol/L Blood Urea Nitrogen 38 mg/dl Creatinine 1.60 mg/dl Est Creatinine Clear Calc Drug Dose 54.4 ml/min Estimated GFR () 48.1 Estimated GFR (Non- 41.5 BUN/Creatinine Ratio 23.9 Random Glucose 195 mg/dl Calcium Level 8.3 mg/dl Total Bilirubin 0.6 mg/dl Aspartate Amino Transf (AST/SGOT) 11 U/L Alanine Aminotransferase (ALT/SGPT) 15 U/L Alkaline Phosphatase 103 U/L Total Protein 6.5 gm/dl Albumin 2.5 gm/dl Globulin 4.0 gm/dl Albumin/Globulin Ratio 0.6 Bedside Glucose 184 mg/dl 221 mg/dl (Candida Strange PA-C) Assessment and Plan 76-year-old male presents emergency department with right upper quadrant abdominal pain. Found to have acute cholecystitis per CT Acute cholecystitis status post left upper cholecystectomy for gangrenous gallbladder on 08/30 -Continue pain control with Dilaudid 0.5 mg IV every hour -Diet per surgery -Continue Zofran 4 mg every 6 hours IV as needed for nausea -Bowel regimen with Colace 100 mg po twice a day -Continue Zosyn Acute renal insufficiency-? Etiology unclear. The patient is borderline hypotensive with master on board. It could be prerenal in nature. The patient hasn't however urinated much since surgery. -Bladder scan -Insert Crowell catheter for > 400 mL urine -Recheck PRP at 1800 hrs. -Keep normal saline running at 80 mL/h for now -hold master Mild hyperkalemia -Recheck PRP at 1800 hrs. Diabetes mellitus -Continue decreased dose of Lantus at 18 units tonight as it is unclear how much the patient will tolerate po -Continue coverage with NovoLog insulin sliding scale Pulmonary fibrosis/chronic respiratory failure on 2 L of oxygen per nasal cannula at all times -Continue O2 and Spiriva Obstructive sleep apnea -Continue CPAP at night Hypertension-BP was slightly low, however it is improved now -Continue outpatient regimen: Atenolol 25 mg daily, diltiazem XL 120 mg daily -Hold Master secondary to renal function Hyperlipidemia -Continue atorvastatin 40 mg daily GERD -Continue pantoprazole 40 mg daily while in house. -May resume omeprazole upon discharge DVT prophylaxis -Heparin 5000 u subQ BID -TEDS, SCDs CODE STATUS -LEVEL I FULL CODE (Candida Strange PA-C) I agree with PA assessment and plan and have seen and examined pt myself Resting comfortably in bed Noted right flank pain Asking for diet Cont antibx at this time Labs reviewed (Kip Hanson D.O.)
[2016-08-30] MEDS ORDERED: NURSING VERBAL MED ORDER ONE (17:00)
[2016-08-30] MEDS ORDERED: HYDROmorphone INJ 0.5 MG/0.5 ML SYR IV PRN (17:15)
[2016-08-30 18:45] LABS: BUN/CREATININE RATIO 21.5 (10-20); CALCIUM 8.5 mg/dl (8.5-10.1); CREATININE 1.9 mg/dl (0.60-1.40); POTASSIUM 4.7 mmol/L (3.5-5.1)
[2016-08-30] MEDS: DOCUSATE SODIUM 100 MG CAP PO SCH (21:27)
[2016-08-30] MEDS: PANTOprazole SOD 40 MG TAB PO SCH (21:27)
[2016-08-30] MEDS: INSULIN GLARGINE SOLOSTAR 100 UNITS/ML 3 ML PEN SC SCH (21:32)
--- NOTE | 2016-08-30 21:33 | EMERGENCY ROOM VISIT NOTE ---
ED Visit Note First contact with patient: 14:03 Chief Complaint: Abdominal pain. History of Present Illness: Mr. Carlson is a 76 year-old white male who ambulates into the ED accompanied by his daughter and son complaining of bilateral mid quadrant abdominal pain. Historically patient reports no significant gastrointestinal disorders or abdominal surgeries Patient reports a acute onset of bilateral mid quadrant quadrant abdominal pain that started approximately 3-4 hours ago. Since that time the pain has been constant but has slightly waxed and waned in intensity. He describes his pain as a sharp sensation. The pain is radiating around the abdomen and into the lower thoracic area. The pain worsens with palpation. He has not identified any alleviating factors related to the pain. He has taken Pepto-Bismol without relief of his discomfort. Associated with his pain he reports she's been nauseated but has not vomited and he feels his abdomen is distended. He has never previously had similar pain. Patient denies fevers, chills, sweats, skin eruptions, skin color changes, upper respiratory tract symptoms, shortness of breath, chest pain, diarrhea, constipation, rectal bleeding, black/tarry stools, urinary symptoms, hematuria. Review of Systems: As noted above in history of present illness. All body systems were reviewed and found to be negative as noted above. Past Medical History: Diabetes, heart disease, hypertension, pneumonia, emphysema, status post angioplasty, idiopathic pulmonary fibrosis. Current Medications: Medications Dose Route/Sig Max Daily Dose Days Date Category Dose Instructions Lantus (Insulin Glargine) 100 Unit/Ml Inj 36 Units SC HS 01/03/16 Reported Glucophage (Metformin Hcl) 850 Mg Tab 850 Mg PO QPM 01/03/16 Reported Lipitor (Atorvastatin Calcium) 40 Mg Tab 40 Mg PO HS 05/29/15 Reported Novolog (Insulin Aspart) 100 Unit/ Inj 0 SC TIDM 01/22/12 Reported PER SLIDING SCALE Ecotrin Or Generic (Aspirin) 81 Mg Tab 81 Mg PO QAM 01/22/12 Reported Dilacor Xr * (Diltiazem HCl) 120 Mg Ercap 120 Mg PO QAM 01/22/12 Reported Spiriva Handihaler (Tiotropium [place]) 18 Mcg/ Aerp 1 Cap INH QAM 01/22/12 Reported Prilosec (Omeprazole) 20 Mg Capcr 20 Mg PO HS 8/28/12 Reported Zestril (Lisinopril) 20 Mg Tab 20 Mg PO QAM 01/22/12 Reported Tenormin (Atenolol) 25 Mg Tab 25 Mg PO QAM 01/22/12 Reported Allergies to Medications: Patient denies. Social History: Patient is not employed; he lives with his family and feels safe in his home environment and denies tobacco and alcohol use. Physical Examination: Vital Signs: Date Time Temp Pulse Resp B/P Pulse Ox O2 Delivery O2 Flow Rate FiO2 08/29/16 18:32 68 20 153/63 98 Room Air 08/29/16 15:30 58 20 114/54 98 Nasal Cannula 2.0 08/29/16 14:55 50 08/29/16 13:44 36.6 62 20 137/66 98 Nasal Cannula 2.0 GENERAL: 76-year-old male in moderate distress due to pain, nontoxic-appearing, afebrile and hemodynamically stable. NEUROLOGICAL: Awake, alert and oriented to person, place and time. Answering questions appropriately and following commands. Normal gait. Good hand eye coordination. SKIN: Warm, dry and pink. No soft tissue eruptions or trauma noted. HEENT: Atraumatic and normocephalic. PERRLA. Sclera white and conjunctiva pink. Oral cavity moist and pink. Pharynx is nonerythematous or edematous. Speech normal. No lymphadenopathy. Trachea midline. No jugular venous distention. BACK: No tenderness over the bony spine. No CVA tenderness. THORAX: Lungs sounds are clear to auscultation and equal bilaterally with symmetrical chest wall. No wheezing, rales or rhonchi. No crepitus, tenderness , subcutaneous air or deformities noted. HEART: Regular rate and rhythm. No gallops, rubs or murmurs are appreciated. ABDOMEN: Protuberant and soft with moderate tenderness through the mid quadrant bilaterally. Decreased bowel sounds in all quadrants. No guarding, rigidity or organomegaly. EXTREMITIES: Moves all extremities well on command and with purpose. All distal neurovascular statuses are intact and equal bilaterally. ED Course: Patient is assessed as noted above. Laboratory Testing: Test 08/29/16 14:00 08/29/16 14:50 Range/Units White Blood Count 8.10 4.8-10.8 K/uL Red Blood Count 4.56 4.7-6.1 M/uL Hemoglobin 14.4 14.0-18.0 g/dL Hematocrit 42.9 42-52 % Mean Corpuscular Volume 94.1 80-100 fL Mean Corpuscular Hemoglobin 31.6 25-34 pg Mean Corpuscular Hemoglobin Concent 33.6 32-36 g/dl Platelet Count 207 130-400 K/uL Mean Platelet Volume 10.4 7.4-10.4 fL Neutrophils (%) (Auto) 79.0 % Lymphocytes (%) (Auto) 11.4 % Monocytes (%) (Auto) 7.8 % Eosinophils (%) (Auto) 1.5 % Basophils (%) (Auto) 0.1 % Neutrophils # (Auto) 6.40 1.4-6.5 K/uL Lymphocytes # (Auto) 0.92 1.2-3.4 K/uL Monocytes # (Auto) 0.63 0.11-0.59 K/uL Eosinophils # (Auto) 0.12 0-0.5 K/uL Basophils # (Auto) 0.01 0-0.2 K/uL RDW Standard Deviation 46.8 36.4-46.3 fL RDW Coefficient of Variation 13.7 11.5-14.5 % Immature Granulocyte % (Auto) 0.2 % Immature Granulocyte # (Auto) 0.02 0.00-0.02 K/uL Prothrombin Time 11.0 9.0-12.0 SECONDS Prothromb Time International Ratio 1.0 0.9-1.1 Sodium Level 138 136-145 mmol/L Potassium Level 4.9 3.5-5.1 mmol/L Chloride Level 106 98-107 mmol/L Carbon Dioxide Level 26 21-32 mmol/L Anion Gap 6.0 3-11 mmol/L Blood Urea Nitrogen 36 7-18 mg/dl Creatinine 1.40 0.60-1.40 mg/dl Est Creatinine Clear Calc Drug Dose 62.2 ml/min Estimated GFR () 56.6 Estimated GFR (Non- 48.8 BUN/Creatinine Ratio 25.7 10-20 Random Glucose 177 70-99 mg/dl Calcium Level 9.2 8.5-10.1 mg/dl Total Bilirubin 0.4 0.2-1 mg/dl Direct Bilirubin 0.1 0-0.2 mg/dl Aspartate Amino Transf (AST/SGOT) 13 15-37 U/L Alanine Aminotransferase (ALT/SGPT) 21 12-78 U/L Alkaline Phosphatase 131 45-117 U/L Total Protein 7.6 6.4-8.2 gm/dl Albumin 3.0 3.4-5.0 gm/dl Lipase 90 73-393 U/L Urine Color YELLOW Urine Appearance CLEAR CLEAR Urine pH 5.0 4.5-7.5 Urine Specific Nerinx 1.023 1.000-1.030 Urine Protein NEG NEG Urine Glucose (UA) NEG NEG Urine Ketones NEG NEG Urine Occult Blood NEG NEG Urine Nitrite NEG NEG Urine Bilirubin NEG NEG Urine Urobilinogen NEG NEG Urine Leukocyte Esterase NEG NEG Acute Abdominal Series: Was read by myself and the radiologist showing no acute infiltrates, effusions or pneumothorax. Extensive chronic and emphysema changes. Abdominal component shows a nonspecific bowel gas pattern without signs of infection. No free air was identified. Contrast Abdominal/Pelvic CT: Shows cholelithiasis with mild per a cholecystectomy filtration consistent with an acute cholecystitis. Borderline biliary ductal dilatation. Severe bulbous emphysema within visual portions of the lung field and several intermittent right lower lobe nodules. Gallbladder Ultrasound: Was reviewed by myself and read by the radiologist showing cholelithiasis without significant gallbladder wall thickening, sonographic Coy sign. Suboptimal penetration to visualize the pancreas. Patient was hydrated with normal saline and he received initially 6 mg of morphine IV for pain and 4 mg of Zofran IV. He reported only minimal improvement from the morphine and was given 1 mg of the Dilaudid IV. On reassessment he reported subjectively he was feeling much better. Patient was reassessed multiple times during his stay in the emergency department. Patient's case was reviewed with Dr. Vernon; we agreed on diagnostic approach, treatment, disposition and plan. Patient's case was consulted with case management and Dr. [place], general surgery; he recommended gallbladder ultrasound and admission by hospitalist for later surgical intervention. Patient's case was consulted with Dr. Fleming, hospitalist; for medical observation/admission. Patient and family members were educated about imani's findings. Clinical Impression: Acute cholecystitis. Decision-Making: Initially my differential diagnosis I considered bowel obstruction, perforated viscus, constipation, hepatitis, pancreatitis, cholecystitis, kidney infection, ureter calculus and other causes. Disposition and Plan: Please see Dr. Fleming and orders for final disposition and plan.
[2016-08-31] VITALS (12 sets, daily range): BP systolic 121–156; BP diastolic 64–76; PULSE 71–113; TEMP 36.3–36.8; O2SAT 88–96
[2016-08-31] MEDS: INSULIN ASPART 100 UNITS/ML 3 ML PEN SC SCH ×5 (01:12→21:24)
[2016-08-31] MEDS: LORAZEPAM INJ 0.5 MG in SYRINGE 0.75 ML IV PRN ×2 (01:32→23:32)
[2016-08-31] MEDS: PIPERACILL/TAZOBAC IV 4.5 GM in DEXTROSE 5% 100ML 100 ML IV SCH ×3 (01:33→20:03)
[2016-08-31] MEDS: HYDROmorphone INJ 1 MG/ML SYR IV PRN (05:49)
[2016-08-31] MEDS: SODIUM CHLORIDE 0.9% 1000ML 1,000 ML IV SCH (07:00)
[2016-08-31] MEDS: ALBUT/IPRATROP 3MG/0.5MG NEB 3 ML VIAL INH SCH ×4 (07:47→20:05)
--- NOTE | 2016-08-31 07:53 | SURGERY PROGRESS NOTE ---
DATE: 08/31/2016 DATE: 08/31/2016. Abhinav is first postoperative day status laparoscopic cholecystectomy, cholangiogram for acute and chronic cholecystitis. He is sitting at the side of bed, feeling really well. He has minimal right upper quadrant pain as he had yesterday. His last vitals showed a temperature of 36.8, a pulse 81, respirations 18, blood pressure 129/69, O2 sats 96 on 3 liters for CPAP. I\T\O, he had 250 urine overnight. The Jeffery drainage is 60, serosanguineous, nonbilious. The abdomen is that it is fairly benign. His main concern he wants to eat, therefore we will start him on a diabetic diet. He stated that the food in the hospital is so good and try to keep him here a while so he can take advantage of it. From my point of view at this time, I will leave the Jeffery drainage in, discharge him when okay with the medical service. I think probably he should continue on some Cipro for another 5 days after discharge. We will see him back in the office in approximately 1 week.
[2016-08-31 08:14] LABS: HEMATOCRIT 39.6 % (42-52); MEAN CELL VOLUME 93.8 fL (80-100); MEAN CORPUSCULAR HGB CONC 34.1 g/dl (32-36); MEAN PLATELET VOLUME 9.9 fL (7.4-10.4); PLATELET COUNT 172 K/uL (130-400); RED BLOOD COUNT 4.22 M/uL (4.7-6.1); WHITE BLOOD COUNT 13.25 K/uL (4.8-10.8)
[2016-08-31] MEDS: OXYCODONE/ACETAMINOPHEN 5-325 TAB PO PRN ×2 (08:14→20:03)
[2016-08-31] MEDS ORDERED: NURSING VERBAL MED ORDER ONE (08:15)
[2016-08-31] MEDS: TIOTROPIUM BROMIDE 5 PUFF/90 MCG INH INH SCH (08:18)
[2016-08-31] MEDS: DOCUSATE SODIUM 100 MG CAP PO SCH ×2 (08:18→21:20)
[2016-08-31] MEDS: HEPARIN SOD 5000 UNIT/0.5 ML CARP SQ SCH ×2 (08:20→21:24)
[2016-08-31] MEDS: DILTIAZEM HCL 120 MG ER CAP PO SCH (08:22)
--- NOTE | 2016-08-31 08:35 | Anesthesiology Progress Note ---
Anesthesia Post Op Note Date & Time Aug 31, 2016 at 08:34 Vital Signs Pain Intensity: 8.0 Vital Signs Past 12 Hours Date Time Temp Pulse Resp B/P Pulse Ox O2 Delivery O2 Flow Rate FiO2 08/31/16 07:47 94 18 89 Nasal Cannula 3.0 08/31/16 06:50 36.5 88 16 133/76 92 Nasal Cannula 3.0 08/31/16 03:35 36.8 81 18 129/69 96 CPAP 08/30/16 23:50 Nasal Cannula 2.0 CPAP 08/30/16 23:25 91 93 3.0 08/30/16 22:54 36.6 93 17 142/66 92 Nasal Cannula 3.0 Notes Mental Status: alert / awake / arousable, participated in evaluation Pt Amnestic to Procedure: Yes Nausea / Vomiting: adequately controlled Pain: adequately controlled Airway Patency, RR, SpO2: stable & adequate BP & HR: stable & adequate Hydration State: stable & adequate Anesthetic Complications: no major complications apparent
[2016-08-31 08:45] LABS: BUN/CREATININE RATIO 24.7 (10-20); CALCIUM 8.9 mg/dl (8.5-10.1); CREATININE 1.7 mg/dl (0.60-1.40); POTASSIUM 4.4 mmol/L (3.5-5.1)
[2016-08-31 08:48] LABS: ALB/GLOB RATIO 0.6 (0.9-2)
[2016-08-31] MEDS ORDERED: OXYC-57 PO (11:04)
[2016-08-31] MEDS ORDERED: CIPR-255 PO (11:04)
--- NOTE | 2016-08-31 14:12 | Hospitalist Progress Note ---
Hospitalist Progress Note Date of Service Aug 31, 2016. (Candida Strange PA-C) Subjective Pt evaluation today including: conversation w/ patient, physical exam, chart review, lab review, review of inpatient medication list Patient denies any significant pain. He has not yet passed gas. No bowel movements. He is not feeling nauseated, actually he is hungry. No fever or chills. Denies any dizziness. Additional Comments: 6 system review negative. Please see pertinent positives in the history of present illness section. (Candida Strange PA-C) Objective Vital Signs Date Time Temp Pulse Resp B/P Pulse Ox O2 Delivery O2 Flow Rate FiO2 08/31/16 11:22 36.7 96 18 156/72 94 Nasal Cannula 3.0 08/31/16 11:22 71 18 93 Nasal Cannula 2.0 08/31/16 08:15 94 121/65 08/31/16 07:50 Nasal Cannula 2.0 08/31/16 07:47 94 18 89 Nasal Cannula 3.0 08/31/16 06:50 36.5 88 16 133/76 92 Nasal Cannula 3.0 08/31/16 03:35 36.8 81 18 129/69 96 CPAP 08/30/16 23:50 Nasal Cannula 2.0 CPAP 08/30/16 23:25 91 93 3.0 08/30/16 22:54 36.6 93 17 142/66 92 Nasal Cannula 3.0 08/30/16 20:24 36.4 86 18 153/86 91 Nasal Cannula 3.0 08/30/16 19:05 80 18 95 Nasal Cannula 3.0 08/30/16 16:40 Nasal Cannula 3.0 08/30/16 15:41 84 18 95 Nasal Cannula 3.0 08/30/16 15:03 36.5 94 18 137/72 93 Nasal Cannula 3.0 (Candida Strange PA-C) Physical Exam General Appearance: no apparent distress Eyes: EOMI Neck: no JVD Respiratory/Chest: lungs clear Cardiovascular: regular rate, rhythm Abdomen: soft, + pertinent finding (mildly distended. Mild tenderness to palpation in the right upper quadrant. Soft. No rebound tenderness. Incisions intact. Serosanguineous drainage in the ALISE) Extremities: non-tender, + pertinent finding (+1 pitting edema in the lower extremities without any significant erythema, tenderness or warmth bilaterally) Neurologic/Psychiatric: no motor/sensory deficits, oriented x 3 Skin: warm/dry (Candida Strange PA-C) Laboratory Results 08/31/16 08:06 08/31/16 08:06 Test 08/31/16 08:06 08/31/16 12:00 Red Blood Count 4.22 M/uL (4.7-6.1) Mean Corpuscular Volume 93.8 fL (80-100) Mean Corpuscular Hemoglobin 32.0 pg (25-34) Mean Corpuscular Hemoglobin Concent 34.1 g/dl (32-36) RDW Standard Deviation 47.9 fL (36.4-46.3) RDW Coefficient of Variation 14.0 % (11.5-14.5) Mean Platelet Volume 9.9 fL (7.4-10.4) Anion Gap 13.0 mmol/L (3-11) Est Creatinine Clear Calc Drug Dose 51.2 ml/min Estimated GFR () 44.7 Estimated GFR (Non- 38.6 BUN/Creatinine Ratio 24.7 (10-20) Calcium Level 8.9 mg/dl (8.5-10.1) Total Bilirubin 0.6 mg/dl (0.2-1) Aspartate Amino Transf (AST/SGOT) 63 U/L (15-37) Alanine Aminotransferase (ALT/SGPT) 44 U/L (12-78) Alkaline Phosphatase 79 U/L (45-117) Total Protein 6.8 gm/dl (6.4-8.2) Albumin 2.5 gm/dl (3.4-5.0) Globulin 4.3 gm/dl (2.5-4.0) Albumin/Globulin Ratio 0.6 (0.9-2) Bedside Glucose 153 mg/dl (70-99) Last 24 Hours Test 08/30/16 18:10 08/30/16 20:02 08/31/16 00:54 08/31/16 05:37 Sodium Level 138 mmol/L Potassium Level 4.7 mmol/L Chloride Level 106 mmol/L Carbon Dioxide Level 20 mmol/L Anion Gap 12.0 mmol/L Blood Urea Nitrogen 41 mg/dl Creatinine 1.90 mg/dl Est Creatinine Clear Calc Drug Dose 45.8 ml/min Estimated GFR () 39.1 Estimated GFR (Non- 33.7 BUN/Creatinine Ratio 21.5 Random Glucose 267 mg/dl Calcium Level 8.5 mg/dl Bedside Glucose 250 mg/dl 225 mg/dl 185 mg/dl Test 08/31/16 08:06 08/31/16 08:15 08/31/16 12:00 White Blood Count 13.25 K/uL Red Blood Count 4.22 M/uL Hemoglobin 13.5 g/dL Hematocrit 39.6 % Mean Corpuscular Volume 93.8 fL Mean Corpuscular Hemoglobin 32.0 pg Mean Corpuscular Hemoglobin Concent 34.1 g/dl RDW Standard Deviation 47.9 fL RDW Coefficient of Variation 14.0 % Platelet Count 172 K/uL Mean Platelet Volume 9.9 fL Sodium Level 141 mmol/L Potassium Level 4.4 mmol/L Chloride Level 108 mmol/L Carbon Dioxide Level 20 mmol/L Anion Gap 13.0 mmol/L Blood Urea Nitrogen 42 mg/dl Creatinine 1.70 mg/dl Est Creatinine Clear Calc Drug Dose 51.2 ml/min Estimated GFR () 44.7 Estimated GFR (Non- 38.6 BUN/Creatinine Ratio 24.7 Random Glucose 141 mg/dl Calcium Level 8.9 mg/dl Total Bilirubin 0.6 mg/dl Aspartate Amino Transf (AST/SGOT) 63 U/L Alanine Aminotransferase (ALT/SGPT) 44 U/L Alkaline Phosphatase 79 U/L Total Protein 6.8 gm/dl Albumin 2.5 gm/dl Globulin 4.3 gm/dl Albumin/Globulin Ratio 0.6 Bedside Glucose 140 mg/dl 153 mg/dl (Candida Strange, PA-C) Assessment and Plan 76-year-old male presents emergency department with right upper quadrant abdominal pain. Found to have acute cholecystitis per CT Acute cholecystitis status post left upper cholecystectomy for gangrenous gallbladder on 08/30 -Transition Dilaudid IV to Percocet by mouth for pain -Diet advanced per surgery today. Patient is tolerating. -Bowel regimen with Colace 100 mg po twice a day -Continue Zosyn while in house. Cipro for 5 days upon d/c. -f/u with surgery in 1 week Acute renal insufficiency-? prerenal with mild hypotension. Creatinine slowly improving at 1.7 today -Monitor PRP -hold master Mild hyperkalemia-resolved Diabetes mellitus -Resume Lantus 36 units today -Continue coverage with NovoLog insulin sliding scale Pulmonary fibrosis/chronic respiratory failure on 2 L of oxygen per nasal cannula at all times -Continue O2 and Spiriva Obstructive sleep apnea -Continue CPAP at night Hypertension -Continue outpatient regimen: Atenolol 25 mg daily, diltiazem XL 120 mg daily -Hold Master secondary to renal function Hyperlipidemia -Continue atorvastatin 40 mg daily GERD -Continue pantoprazole 40 mg daily while in house. -May resume omeprazole upon discharge DVT prophylaxis -Heparin 5000 u subQ BID -TEDS, SCDs CODE STATUS -LEVEL I FULL CODE DISPO -PT/OT eval -Patient will likely be discharged home. He may need home healthcare or PT as an outpatient. 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
--- NOTE | 2016-08-31 18:06 | DIAGNOSTIC IMAGING REPORT ---
CHEST ONE VIEW PORTABLE HISTORY: Shortness of Breath and Tachycardic COMPARISON: Chest 09/27/2016. FINDINGS: Severe bullous emphysema is again noted. Bilateral mid to lower lung zone interstitial thickening remains unchanged. This could represent fibrotic change. No new focal lung consolidations. The heart remains borderline enlarged. No pneumothorax. IMPRESSION: No significant change compared to the prior study. No acute process. Severe bullous emphysema and bibasilar interstitial thickening/fibrotic change persists. No new focal lung consolidations. Electronically signed by: Boy Le M.D. 08/31/2016 6:04 PM Dictated Date/Time: 08/31/2016 6:03 PM
[2016-08-31] MEDS: PANTOprazole SOD 40 MG TAB PO SCH (21:20)
[2016-08-31] MEDS: INSULIN GLARGINE SOLOSTAR 100 UNITS/ML 3 ML PEN SC SCH (21:22)
[2016-09-01] VITALS (10 sets, daily range): BP systolic 132–143; BP diastolic 59–79; PULSE 85–141; TEMP 36.5–36.9; O2SAT 92–97
[2016-09-01] MEDS: PIPERACILL/TAZOBAC IV 4.5 GM in DEXTROSE 5% 100ML 100 ML IV SCH ×3 (01:38→19:47)
[2016-09-01 06:16] LABS: HEMATOCRIT 37.5 % (42-52); MEAN CELL VOLUME 91.7 fL (80-100); MEAN CORPUSCULAR HEMOGLOBIN 31.1 pg (25-34); MEAN CORPUSCULAR HGB CONC 33.9 g/dl (32-36); MEAN PLATELET VOLUME 10.3 fL (7.4-10.4); PLATELET COUNT 197 K/uL (130-400); RED BLOOD COUNT 4.09 M/uL (4.7-6.1); WHITE BLOOD COUNT 10.66 K/uL (4.8-10.8)
[2016-09-01 06:58] LABS: ALB/GLOB RATIO 0.5 (0.9-2); BUN/CREATININE RATIO 27.1 (10-20); CREATININE 1.7 mg/dl (0.60-1.40)
[2016-09-01] MEDS: ALBUT/IPRATROP 3MG/0.5MG NEB 3 ML VIAL INH SCH ×4 (07:36→19:50)
[2016-09-01] MEDS: TIOTROPIUM BROMIDE 5 PUFF/90 MCG INH INH SCH (09:24)
[2016-09-01] MEDS: DOCUSATE SODIUM 100 MG CAP PO SCH ×2 (09:25→21:51)
[2016-09-01] MEDS: DILTIAZEM HCL 120 MG ER CAP PO SCH (09:26)
[2016-09-01] MEDS: INSULIN ASPART 100 UNITS/ML 3 ML PEN SC SCH ×4 (09:34→21:45)
[2016-09-01] MEDS: HEPARIN SOD 5000 UNIT/0.5 ML CARP SQ SCH ×2 (09:35→21:43)
[2016-09-01] MEDS ORDERED: BISACODYL 5 MG TABEC PO ONE (09:45)
--- NOTE | 2016-09-01 10:34 | Surgery Progress Note ---
Surgery Progress Note Date of Service Sep 01, 2016. Subjective + feeling well, + pain controlled Gets full quickly. No nausea or vomiting. On regular diet. Objective Vital Signs: Date Time Temp Pulse Resp B/P Pulse Ox O2 Delivery O2 Flow Rate FiO2 09/01/16 10:05 94 Nasal Cannula 3.0 09/01/16 09:45 Room Air 09/01/16 08:00 36.5 85 20 138/59 94 Nasal Cannula 3.0 09/01/16 07:36 91 18 93 Nasal Cannula 2.0 08/31/16 23:41 CPAP 08/31/16 22:59 36.4 102 18 127/74 95 CPAP 08/31/16 22:43 110 95 3.0 08/31/16 20:05 102 18 89 Nasal Cannula 2.5 08/31/16 20:05 102 16 90 Nasal Cannula 3.0 08/31/16 17:17 36.7 113 20 143/64 90 Nasal Cannula 2.0 08/31/16 16:00 Nasal Cannula 2.0 08/31/16 15:46 92 18 90 Nasal Cannula 3.0 08/31/16 14:54 91 Nasal Cannula 3.0 08/31/16 14:53 36.3 92 16 121/69 88 Nasal Cannula 2.0 08/31/16 11:22 36.7 96 18 156/72 94 Nasal Cannula 3.0 08/31/16 11:22 71 18 93 Nasal Cannula 2.0 Physical Exam: ALISE drainage (110 cc serosanguinous) General Appearance: WD/WN, no apparent distress Respiratory/Chest: normal breath sounds, + pertinent finding (on oxygen (on at home also)) Cardiovascular: regular rate, rhythm Abdomen: normal bowel sounds, non tender, soft, + distended (mild) Incision(s): clean, dry, intact Laboratory Results: Results Past 24 Hours Test 08/31/16 12:00 08/31/16 17:10 08/31/16 20:19 09/01/16 05:53 Range/Units Bedside Glucose 153 213 211 70-99 mg/dl White Blood Count 10.66 4.8-10.8 K/uL Red Blood Count 4.09 4.7-6.1 M/uL Hemoglobin 12.7 14.0-18.0 g/dL Hematocrit 37.5 42-52 % Mean Corpuscular Volume 91.7 80-100 fL Mean Corpuscular Hemoglobin 31.1 25-34 pg Mean Corpuscular Hemoglobin Concent 33.9 32-36 g/dl RDW Standard Deviation 46.2 36.4-46.3 fL RDW Coefficient of Variation 13.9 11.5-14.5 % Platelet Count 197 130-400 K/uL Mean Platelet Volume 10.3 7.4-10.4 fL Test 09/01/16 05:58 09/01/16 07:46 Range/Units Sodium Level 140 136-145 mmol/L Potassium Level 4.0 3.5-5.1 mmol/L Chloride Level 108 98-107 mmol/L Carbon Dioxide Level 23 21-32 mmol/L Anion Gap 9.0 3-11 mmol/L Blood Urea Nitrogen 46 7-18 mg/dl Creatinine 1.70 0.60-1.40 mg/dl Est Creatinine Clear Calc Drug Dose 51.2 ml/min Estimated GFR () 44.7 Estimated GFR (Non- 38.6 BUN/Creatinine Ratio 27.1 10-20 Random Glucose 203 70-99 mg/dl Calcium Level 9.0 8.5-10.1 mg/dl Total Bilirubin 0.6 0.2-1 mg/dl Aspartate Amino Transf (AST/SGOT) 65 15-37 U/L Alanine Aminotransferase (ALT/SGPT) 54 12-78 U/L Alkaline Phosphatase 85 45-117 U/L Total Protein 6.7 6.4-8.2 gm/dl Albumin 2.3 3.4-5.0 gm/dl Globulin 4.4 2.5-4.0 gm/dl Albumin/Globulin Ratio 0.5 0.9-2 Bedside Glucose 186 70-99 mg/dl Assessment & Plan s/p lap winnie for gangrenous cholecystitis. Doing well. Leukocytosis resolved. Will aim for home tomorrow with drain in place.
--- NOTE | 2016-09-01 11:48 | Progress Note ---
Subjective Date of Service: Sep 01, 2016. Subjective Pt evaluation today including: conversation w/ patient, physical exam, chart review, lab review, review of studies, review of inpatient medication list STates still feeling weak but improved from yesterday Pain is mild, more cramp like in nature No acute events overnight Problem List Medical Problems: (1) Hypoxia Status: Acute (2) Pneumonia Status: Acute Review of Systems Constitutional: + fatigue, + weakness, No chills, No fever Eyes: No eye pain, No worsening of vision Respiratory: No cough, No shortness of breath, No sputum, No wheezing Cardiac: No chest pain, No orthopnea Abdomen: + pain, No constipation, No diarrhea, No nausea, No vomiting Musculoskeletal: No joint pain, No muscle pain Male : No dysuria, No urinary frequency Objective Vital Signs Date Time Temp Pulse Resp B/P Pulse Ox O2 Delivery O2 Flow Rate FiO2 09/01/16 10:05 94 Nasal Cannula 3.0 09/01/16 09:45 Room Air 09/01/16 08:00 36.5 85 20 138/59 94 Nasal Cannula 3.0 09/01/16 07:36 91 18 93 Nasal Cannula 2.0 08/31/16 23:41 CPAP 08/31/16 22:59 36.4 102 18 127/74 95 CPAP 08/31/16 22:43 110 95 3.0 08/31/16 20:05 102 18 89 Nasal Cannula 2.5 08/31/16 20:05 102 16 90 Nasal Cannula 3.0 08/31/16 17:17 36.7 113 20 143/64 90 Nasal Cannula 2.0 08/31/16 16:00 Nasal Cannula 2.0 08/31/16 15:46 92 18 90 Nasal Cannula 3.0 08/31/16 14:54 91 Nasal Cannula 3.0 08/31/16 14:53 36.3 92 16 121/69 88 Nasal Cannula 2.0 Physical Exam General Appearance: WD/WN, no apparent distress Neck: supple, no adenopathy Respiratory/Chest: lungs clear, normal breath sounds Cardiovascular: no edema, no gallop Abdomen: non tender, soft Neurologic/Psychiatric: no motor/sensory deficits, normal mood/affect Laboratory Results Last 24 Hours Test 08/31/16 12:00 08/31/16 17:10 08/31/16 20:19 09/01/16 05:53 Bedside Glucose 153 mg/dl 213 mg/dl 211 mg/dl White Blood Count 10.66 K/uL Red Blood Count 4.09 M/uL Hemoglobin 12.7 g/dL Hematocrit 37.5 % Mean Corpuscular Volume 91.7 fL Mean Corpuscular Hemoglobin 31.1 pg Mean Corpuscular Hemoglobin Concent 33.9 g/dl RDW Standard Deviation 46.2 fL RDW Coefficient of Variation 13.9 % Platelet Count 197 K/uL Mean Platelet Volume 10.3 fL Test 09/01/16 05:58 09/01/16 07:46 Sodium Level 140 mmol/L Potassium Level 4.0 mmol/L Chloride Level 108 mmol/L Carbon Dioxide Level 23 mmol/L Anion Gap 9.0 mmol/L Blood Urea Nitrogen 46 mg/dl Creatinine 1.70 mg/dl Est Creatinine Clear Calc Drug Dose 51.2 ml/min Estimated GFR () 44.7 Estimated GFR (Non- 38.6 BUN/Creatinine Ratio 27.1 Random Glucose 203 mg/dl Calcium Level 9.0 mg/dl Total Bilirubin 0.6 mg/dl Aspartate Amino Transf (AST/SGOT) 65 U/L Alanine Aminotransferase (ALT/SGPT) 54 U/L Alkaline Phosphatase 85 U/L Total Protein 6.7 gm/dl Albumin 2.3 gm/dl Globulin 4.4 gm/dl Albumin/Globulin Ratio 0.5 Bedside Glucose 186 mg/dl Assessment and Plan 6-year-old male presents emergency department with right upper quadrant abdominal pain. Found to have acute cholecystitis per CT Acute cholecystitis status post left upper cholecystectomy for gangrenous gallbladder on 08/30 -Transition Dilaudid IV to Percocet by mouth for pain -Diet advanced per surgery. . -Bowel regimen with Colace 100 mg po twice a day -Continue Zosyn while in house. Cipro for 5 days upon d/c. 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 -May resume omeprazole upon discharge DVT prophylaxis -Heparin 5000 u subQ BID -TEDS, SCDs CODE STATUS -LEVEL I FULL CODE
[2016-09-01] MEDS: OXYCODONE/ACETAMINOPHEN 5-325 TAB PO PRN ×2 (12:23→20:20)
[2016-09-01] MEDS: INSULIN GLARGINE SOLOSTAR 100 UNITS/ML 3 ML PEN SC SCH (21:45)
[2016-09-01] MEDS: PANTOprazole SOD 40 MG TAB PO SCH (21:51)
[2016-09-01] MEDS: LORAZEPAM INJ 0.5 MG in SYRINGE 0.75 ML IV PRN (23:31)
[2016-09-02] MEDS: PIPERACILL/TAZOBAC IV 4.5 GM in DEXTROSE 5% 100ML 100 ML IV SCH (01:57)
[2016-09-02 02:03] VITALS: PULSE 78
[2016-09-02 06:41] LABS: HEMATOCRIT 36.7 % (42-52); MEAN CELL VOLUME 92.2 fL (80-100); MEAN CORPUSCULAR HEMOGLOBIN 30.7 pg (25-34); MEAN CORPUSCULAR HGB CONC 33.2 g/dl (32-36); MEAN PLATELET VOLUME 10.6 fL (7.4-10.4); PLATELET COUNT 194 K/uL (130-400); RED BLOOD COUNT 3.98 M/uL (4.7-6.1); WHITE BLOOD COUNT 8.25 K/uL (4.8-10.8)
[2016-09-02 07:26] VITALS: BP 131/74; PULSE 82; TEMP 36.8; O2SAT 97
[2016-09-02 07:39] VITALS: PULSE 88; O2SAT 96
[2016-09-02] MEDS: ALBUT/IPRATROP 3MG/0.5MG NEB 3 ML VIAL INH SCH ×2 (07:39→11:45)
[2016-09-02 07:42] LABS: BUN/CREATININE RATIO 33.1 (10-20); CALCIUM 8.6 mg/dl (8.5-10.1); CREATININE 1.5 mg/dl (0.60-1.40); POTASSIUM 4.3 mmol/L (3.5-5.1)
[2016-09-02 07:43] LABS: ALB/GLOB RATIO 0.5 (0.9-2)
[2016-09-02] MEDS: DOCUSATE SODIUM 100 MG CAP PO SCH (09:15)
[2016-09-02] MEDS: TIOTROPIUM BROMIDE 5 PUFF/90 MCG INH INH SCH (09:15)
[2016-09-02] MEDS: DILTIAZEM HCL 120 MG ER CAP PO SCH (09:16)
[2016-09-02] MEDS: INSULIN ASPART 100 UNITS/ML 3 ML PEN SC SCH (09:54)
[2016-09-02] MEDS: HEPARIN SOD 5000 UNIT/0.5 ML CARP SQ SCH (09:54)
[2016-09-02] MEDS ORDERED: NURSING DECISION MEDICATION ORDER SCH (10:30)
--- NOTE | 2016-09-02 11:03 | Surgery Progress Note ---
Surgery Progress Note Date of Service Sep 02, 2016. Subjective Feels better than yesterday. Had a bowel movement. Tolerating diet. Tremors have improved. Feels ready for discharge. Objective Vital Signs: Date Time Temp Pulse Resp B/P Pulse Ox O2 Delivery O2 Flow Rate FiO2 09/02/16 07:39 88 18 96 Nasal Cannula 3.0 09/02/16 07:35 Nasal Cannula 2.0 09/02/16 07:26 36.8 82 18 131/74 97 3.0 09/02/16 02:03 78 09/01/16 23:48 CPAP 09/01/16 23:23 36.9 141 16 143/79 92 Room Air 09/01/16 22:36 120 97 3.0 09/01/16 19:54 125 20 93 Nasal Cannula 3.0 09/01/16 16:30 96 Nasal Cannula 3.0 09/01/16 16:00 115 18 96 Nasal Cannula 3.0 09/01/16 15:31 36.5 88 20 132/64 95 Nasal Cannula 3.0 09/01/16 11:51 36.9 100 26 134/74 95 Nasal Cannula 3.0 09/01/16 11:51 100 18 95 Nasal Cannula 3.0 Physical Exam: ALISE drainage (200 cc serous) General Appearance: no apparent distress Respiratory/Chest: no respiratory distress, no accessory muscle use Cardiovascular: regular rate, rhythm Abdomen: normal bowel sounds, non tender, non distended, soft Incision(s): clean, dry, intact Laboratory Results: Results Past 24 Hours Test 09/01/16 12:03 09/01/16 17:20 09/01/16 20:35 09/02/16 05:56 Range/Units Bedside Glucose 166 204 242 70-99 mg/dl White Blood Count 8.25 4.8-10.8 K/uL Red Blood Count 3.98 4.7-6.1 M/uL Hemoglobin 12.2 14.0-18.0 g/dL Hematocrit 36.7 42-52 % Mean Corpuscular Volume 92.2 80-100 fL Mean Corpuscular Hemoglobin 30.7 25-34 pg Mean Corpuscular Hemoglobin Concent 33.2 32-36 g/dl RDW Standard Deviation 46.3 36.4-46.3 fL RDW Coefficient of Variation 13.7 11.5-14.5 % Platelet Count 194 130-400 K/uL Mean Platelet Volume 10.6 7.4-10.4 fL Sodium Level 141 136-145 mmol/L Potassium Level 4.3 3.5-5.1 mmol/L Chloride Level 110 98-107 mmol/L Carbon Dioxide Level 22 21-32 mmol/L Anion Gap 9.0 3-11 mmol/L Blood Urea Nitrogen 50 7-18 mg/dl Creatinine 1.50 0.60-1.40 mg/dl Est Creatinine Clear Calc Drug Dose 58.0 ml/min Estimated GFR () 52.0 Estimated GFR (Non- 44.9 BUN/Creatinine Ratio 33.1 10-20 Random Glucose 175 70-99 mg/dl Calcium Level 8.6 8.5-10.1 mg/dl Total Bilirubin 0.8 0.2-1 mg/dl Aspartate Amino Transf (AST/SGOT) 41 15-37 U/L Alanine Aminotransferase (ALT/SGPT) 51 12-78 U/L Alkaline Phosphatase 90 45-117 U/L Total Protein 6.2 6.4-8.2 gm/dl Albumin 2.0 3.4-5.0 gm/dl Globulin 4.2 2.5-4.0 gm/dl Albumin/Globulin Ratio 0.5 0.9-2 Test 09/02/16 07:45 Range/Units Bedside Glucose 158 70-99 mg/dl Assessment & Plan s/p lap winnie for gangrenous cholecystitis. Doing well. Ready for discharge today. OK to go home with drain with plans for f/u within this week for drain removal.
--- NOTE | 2016-09-02 11:27 | Discharge Instructions ---
Discharge Instructions Date of Service Sep 02, 2016. Admission Reason for Admission: Acute Cholecystitis Discharge Discharge Diagnosis / Problem: Acute cholecytitis, urinary tract infection Discharge Goals Goal(s): Decrease discomfort, Improve function, Increase independence, Improve disease control, Diagnostic testing, Therapeutic intervention Activity Recommendations Activity Limitations: resume your previous activity Exercise/Sports Limitations: none . Instructions / Follow-Up Instructions / Follow-Up Patient to be discharged home Please take antibiotic cipro twice a day for 5 more days for urinary tract infection Please take percocet as directed and only as needed for pain Please follow up with general surgery as scheduled for drain management Current Hospital Diet Patient's current hospital diet: Diabetes Type 2 Diet Discharge Diet Recommended Diet: Diabetes Type 2 Diet Procedures Procedures Performed: laparoscopic cholecystectomy, intraoperative cholangiogram Pending Studies Studies pending at discharge: no Laboratory Results Hemoglobin A1c Test 07/17/16 10:35 Range/Units Estimated Average Glucose 126 mg/dl Hemoglobin A1c 6.0 H 4.5-5.6 % Medical Emergencies . Who to Call and When: Medical Emergencies: If at any time you feel your situation is an emergency, please call 911 immediately. . Non-Emergent Contact Non-Emergency issues call your: Primary Care Provider Call Non-Emergent contact if: you have a fever, your pain is worsening . . "Provider Documentation" section prepared by Kip Hanson. VTE Core Measure Inpt VTE Proph given/why not?: Unfractionated heparin SQ
--- NOTE | 2016-09-02 11:44 | Discharge Summary ---
Discharge Summary Date of Service Sep 02, 2016. Discharge Summary Admission Date: Aug 29, 2016 at 18:56 Discharge Date: Sep 02, 2016 Discharge Disposition: Home Principal Diagnosis: Acute cholecystitis, UTI Immunizations: Have You Had Influenza Vaccine: No History of Tetanus Vaccine?: Yes History of Pneumococcal: Yes History of Hepatitis B Vaccine: Unknown Consultations: General surgery Medication Reconciliation New Medications: Ciprofloxacin Hcl (Cipro) 500 Mg Tab 500 MG PO BID, #10 TAB Oxycodone/Acetaminophen 5MG/325MG (Percocet 5MG/325MG) Tab 1-2 TABLETS PO Q4H PRN for Pain, #30 TAB Discharge Exam Review of Systems: Constitutional: No chills, No fever Respiratory: No cough, No dyspnea on exertion, No shortness of breath, No sputum Cardiovascular: No chest pain, No orthopnea Abdomen: No nausea, No pain, No vomiting Musculoskeletal: No joint pain, No muscle pain Genitourinary - Male: No dysuria, No hematuria Neurologic: No paralysis, No weakness Physical Exam: General Appearance: WD/WN, no apparent distress Neck: supple, no adenopathy Respiratory/Chest: lungs clear, + wheezing Cardiovascular: no edema, no gallop Abdomen / GI: non tender, soft Neurologic/Psychiatric: alert, oriented x 3 Hospital Course 76-year-old male presents emergency department with right upper quadrant abdominal pain. Found to have acute cholecystitis per CT Acute cholecystitis status post left upper cholecystectomy for gangrenous gallbladder on 08/30 -Transition Dilaudid IV to Percocet by mouth for pain -Diet advanced per surgery. . -Bowel regimen with Colace 100 mg po twice a day -Continue Zosyn while in house. Cipro for 5 days upon d/c. 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 -May resume omeprazole upon discharge DVT prophylaxis -Heparin 5000 u subQ BID -TEDS, SCDs CODE STATUS -LEVEL I FULL CODE Total Time Spent: Greater than 30 minutes This includes examination of the patient, discharge planning, medication reconciliation, and communication with other providers. Discharge Instructions Please refer to the electronic Patient Visit Report (Discharge Instructions) for additional information. Additional Copies To Liliana Oliver M.D.
[2016-09-02 11:45] VITALS: PULSE 101; O2SAT 95
[2016-09-02 12:05] VITALS: BP 131/74; PULSE 101; TEMP 36.8; O2SAT 95
[2016-09-02] MEDS ORDERED: CIPROFLOXACIN 500 MG TAB PO SCH (21:00)
== END 2016-09-02 13:29 | disposition home or self-care (01) | DRG 418 ==
LOC: ENRESERVTM → ENRESERVDT → EDBD 13:31 → C.EDC 13:32 → C.MSN 18:56
PROVIDERS: ADMIT Internal Medicine; ATTEND Hospitalist
PROC: 0FT44ZZ Resection of Gallbladder, Percutaneous Endoscopic Approach (ICD-10-PCS; principal; 2016-08-30 11:15)
DX: K80.12 Calculus of gallbladder with acute and chronic cholecystitis without obstruction (principal); Z68.41 Body mass index [BMI] 40.0-44.9, adult; J96.10 Chronic respiratory failure, unspecified whether with hypoxia or hypercapnia; N39.0 Urinary tract infection, site not specified; N17.9 Acute kidney failure, unspecified; E87.5 Hyperkalemia; E66.9 Obesity, unspecified; J84.10 Pulmonary fibrosis, unspecified; E78.5 Hyperlipidemia, unspecified; K21.9 Gastro-esophageal reflux disease without esophagitis; I12.9 Hypertensive chronic kidney disease with stage 1 through stage 4 chronic kidney disease, or unspecified chronic kidney disease; G47.33 Obstructive sleep apnea (adult) (pediatric); N18.3 Chronic kidney disease, stage 3 (moderate); I25.10 Atherosclerotic heart disease of native coronary artery without angina pectoris; J43.9 Emphysema, unspecified; E11.9 Type 2 diabetes mellitus without complications; I25.2 Old myocardial infarction; Z98.62 Peripheral vascular angioplasty status; Z79.4 Long term (current) use of insulin; Z79.82 Long term (current) use of aspirin; Z99.81 Dependence on supplemental oxygen; Z87.891 Personal history of nicotine dependence; Z87.01 Personal history of pneumonia (recurrent); Z83.3 Family history of diabetes mellitus; Z82.49 Family history of ischemic heart disease and other diseases of the circulatory system; Z83.6 Family history of other diseases of the respiratory system

== ENCOUNTER → 2017-01-04 | Outpatient (CLI) | payer OTHER ==
[~2017-01-04] MED LIST changes: +CIPR-255 PO; +OXYC-57 PO
[2017-01-04 13:47] LABS: ESTIMATED AVERAGE GLUCOSE 123 mg/dl; HA1C FLAG Normal (Normal)
[2017-01-04 13:48] LABS: ALT/SGPT 19 U/L (12-78); BLOOD UREA NITROGEN 29 mg/dl (7-18); BUN/CREATININE RATIO 22.5 (10-20); CALCIUM 9.4 mg/dl (8.5-10.1); CARBON DIOXIDE 26 mmol/L (21-32); CHLORIDE 107 mmol/L (98-107); CHOLESTEROL 100 mg/dl (0-200); GLUCOSE 131 mg/dl (70-99); POTASSIUM 5.2 mmol/L (3.5-5.1); SODIUM 139 mmol/L (136-145); TRIGLYCERIDES 87 mg/dl (0-150); VERY LOW DENSITY LIPOPROT CALC 17 mg/dl
[2017-01-04 13:51] LABS: ALB/GLOB RATIO 0.6 (0.9-2); ALKALINE PHOSPHATASE 146 U/L (45-117); AST/SGOT 15 U/L (15-37); CHOLESTEROL/HDL RATIO 2.7; HDL CHOLESTEROL 37 mg/dl; LDL CHOLESTEROL CALCULATED 46 mg/dl
[2017-01-04 14:09] LABS: RATIO 45.4 mcg/mg (0-30.0)
== END | disposition home or self-care (01) ==
LOC: C.LABPVFM 08:21
PROVIDERS: ATTEND Family Medicine
DX: E11.39 Type 2 diabetes mellitus with other diabetic ophthalmic complication (principal); E78.5 Hyperlipidemia, unspecified; I10 Essential (primary) hypertension; E87.5 Hyperkalemia; K21.9 Gastro-esophageal reflux disease without esophagitis

== ENCOUNTER → 2017-01-14 | Outpatient (CLI) | payer OTHER | END | disposition home or self-care (01) | LOC: C.LABPVFM 08:51 | PROVIDERS: ATTEND Family Medicine | DX: E87.5 Hyperkalemia (principal) ==

== ENCOUNTER → 2017-03-14 | Outpatient (CLI) | payer OTHER ==
[~2017-03-14] MED LIST changes: -OXYC-57 PO
[2017-03-14 12:38] LABS: ESTIMATED AVERAGE GLUCOSE 111 mg/dl; HA1C FLAG Normal (Normal)
== END | disposition home or self-care (01) ==
LOC: C.LABPVFM 09:54
PROVIDERS: ATTEND Nurse Practitioner Adult Health
DX: Z51.81 Encounter for therapeutic drug level monitoring (principal); E11.39 Type 2 diabetes mellitus with other diabetic ophthalmic complication; Z79.4 Long term (current) use of insulin

== ENCOUNTER → 2017-05-14 | Outpatient (CLI) | payer OTHER ==
[2017-05-14 13:26] LABS: ALT/SGPT 15 U/L (12-78); BLOOD UREA NITROGEN 23 mg/dl (7-18); BUN/CREATININE RATIO 20.1 (10-20); CALCIUM 9.1 mg/dl (8.5-10.1); CARBON DIOXIDE 25 mmol/L (21-32); CHLORIDE 108 mmol/L (98-107); CREATININE 1.15 mg/dl (0.60-1.40); GLUCOSE 170 mg/dl (70-99); POTASSIUM 4.3 mmol/L (3.5-5.1); SODIUM 140 mmol/L (136-145)
[2017-05-14 13:29] LABS: ALB/GLOB RATIO 0.5 (0.9-2); ALKALINE PHOSPHATASE 137 U/L (45-117); AST/SGOT 13 U/L (15-37)
== END | disposition home or self-care (01) ==
LOC: C.LABPVFM 10:03
PROVIDERS: ATTEND Family Medicine
DX: E78.5 Hyperlipidemia, unspecified (principal); I10 Essential (primary) hypertension; K21.9 Gastro-esophageal reflux disease without esophagitis; R77.1 Abnormality of globulin; E87.5 Hyperkalemia; J84.112 Idiopathic pulmonary fibrosis

== ENCOUNTER → 2017-09-11 | Outpatient (CLI) | payer OTHER ==
[~2017-09-11] MED LIST changes: +ASPI-319 PO; -ASPI81TA21 PO
[2017-09-11 13:11] LABS: HEMATOCRIT 41.5 % (42-52); HEMOGLOBIN 13.1 g/dL (14.0-18.0)
[2017-09-11 13:22] LABS: ALBUMIN 2.6 gm/dl (3.4-5.0); ALT/SGPT 17 U/L (12-78); BLOOD UREA NITROGEN 19 mg/dl (7-18); CALCIUM 9.4 mg/dl (8.5-10.1); CARBON DIOXIDE 25 mmol/L (21-32); CREATININE 1.12 mg/dl (0.60-1.40); GLUCOSE 134 mg/dl (70-99); POTASSIUM 4.6 mmol/L (3.5-5.1); SODIUM 139 mmol/L (136-145)
[2017-09-11 13:25] LABS: ALKALINE PHOSPHATASE 134 U/L (45-117); AST/SGOT 12 U/L (15-37); CHOLESTEROL 85 mg/dl (0-200); LDL CHOLESTEROL CALCULATED 29 mg/dl; TOTAL PROTEIN 7.7 gm/dl (6.4-8.2)
[2017-09-12 07:18] LABS: HEMOGLOBIN A1C 5.9 % (4.5-5.6)
== END | disposition home or self-care (01) ==
LOC: C.LABPVFM 09:24
PROVIDERS: ATTEND Family Medicine
DX: E78.5 Hyperlipidemia, unspecified (principal); E11.39 Type 2 diabetes mellitus with other diabetic ophthalmic complication; I10 Essential (primary) hypertension; E66.9 Obesity, unspecified

== ENCOUNTER → 2017-12-13 | Outpatient (CLI) | payer OTHER ==
[~2017-12-13] MED LIST changes: +ALBINS INH; -ATEN25TA PO; -CIPR-255 PO; +DILT120C43 PO; -DLCSR120 PO; +FURO-85 PO; -INSDGI SC; +INSU100I23 SQ; -NVLGI SC; +NVLGI/PEN SQ; -OMEP20CA59 PO; +OMEP20CA9 PO; +PIOG1TAB23 PO; -TIOTCAP INH; +TNR50 PO; +UMEC1AER INH
[2017-12-13 14:31] LABS: EOS % 1.7 %; EOS ABS # 0.07 K/uL (0-0.5); HEMATOCRIT 30.1 % (42-52); HEMOGLOBIN 9.5 g/dL (14.0-18.0); IG# 0.01 K/uL (0.00-0.02); LYMPH % 5.9 %; LYMPH ABS # 0.24 K/uL (1.2-3.4); MEAN CELL VOLUME 90.9 fL (80-100); MEAN CORPUSCULAR HEMOGLOBIN 28.7 pg (25-34); MEAN CORPUSCULAR HGB CONC 31.6 g/dl (32-36); MEAN PLATELET VOLUME 10.2 fL (7.4-10.4); MONO % 2.9 %; MONO ABS # 0.12 K/uL (0.11-0.59); NEUT % 89.3 %; NEUT ABS # 3.66 K/uL (1.4-6.5); PLATELET COUNT 187 K/uL (130-400); RED CELL DISTRIBUTION WIDTH CV 15.9 % (11.5-14.5); RED CELL DISTRIBUTION WIDTH SD 52.4 fL (36.4-46.3)
[2017-12-13 14:53] LABS: ALBUMIN 1.9 gm/dl (3.4-5.0); ALKALINE PHOSPHATASE 93 U/L (45-117); ALT/SGPT 17 U/L (12-78); AST/SGOT 14 U/L (15-37); BLOOD UREA NITROGEN 35 mg/dl (7-18); CALCIUM 8.4 mg/dl (8.5-10.1); CARBON DIOXIDE 26 mmol/L (21-32); CREATININE 1.04 mg/dl (0.60-1.40); GLUCOSE 48 mg/dl (70-99); POTASSIUM 4.4 mmol/L (3.5-5.1); SODIUM 137 mmol/L (136-145)
== END | disposition home or self-care (01) ==
LOC: C.LABSPEC 13:27
PROVIDERS: ATTEND Internal Medicine Hematology & Oncology
DX: C34.90 Malignant neoplasm of unspecified part of unspecified bronchus or lung (principal)

== ENCOUNTER → 2017-12-16 | Outpatient (CLI) | payer OTHER ==
[~2017-12-16] MED LIST changes: -LISI-725 PO
[2017-12-16 09:16] LABS: EOS % 0.7 %; EOS ABS # 0.02 K/uL (0-0.5); HEMATOCRIT 27.3 % (42-52); HEMOGLOBIN 8.7 g/dL (14.0-18.0); IG# 0.01 K/uL (0.00-0.02); LYMPH ABS # 0.19 K/uL (1.2-3.4); MEAN CELL VOLUME 90.7 fL (80-100); MEAN CORPUSCULAR HEMOGLOBIN 28.9 pg (25-34); MEAN CORPUSCULAR HGB CONC 31.9 g/dl (32-36); MEAN PLATELET VOLUME 9.2 fL (7.4-10.4); MONO % 7.7 %; MONO ABS # 0.21 K/uL (0.11-0.59); NEUT % 84.2 %; NEUT ABS # 2.28 K/uL (1.4-6.5); PLATELET COUNT 157 K/uL (130-400); RED CELL DISTRIBUTION WIDTH CV 15.7 % (11.5-14.5); RED CELL DISTRIBUTION WIDTH SD 51.2 fL (36.4-46.3); WHITE BLOOD COUNT 2.71 K/uL (4.8-10.8)
[2017-12-16 09:38] LABS: ALBUMIN 1.8 gm/dl (3.4-5.0); ALKALINE PHOSPHATASE 105 U/L (45-117); ALT/SGPT 16 U/L (12-78); AST/SGOT 13 U/L (15-37); BLOOD UREA NITROGEN 23 mg/dl (7-18); CALCIUM 7.7 mg/dl (8.5-10.1); CARBON DIOXIDE 23 mmol/L (21-32); CREATININE 0.93 mg/dl (0.60-1.40); GLUCOSE 191 mg/dl (70-99); POTASSIUM 4.3 mmol/L (3.5-5.1); SODIUM 137 mmol/L (136-145); TOTAL PROTEIN 5.6 gm/dl (6.4-8.2)
== END | disposition home or self-care (01) ==
LOC: C.LABSPEC 09:01
PROVIDERS: ATTEND Internal Medicine Hematology & Oncology
DX: C34.90 Malignant neoplasm of unspecified part of unspecified bronchus or lung (principal)

== ENCOUNTER → 2017-12-19 | Outpatient (CLI) | payer OTHER ==
[2017-12-19 08:42] LABS: EOS % 0.3 %; EOS ABS # 0.01 K/uL (0-0.5); HEMATOCRIT 28.2 % (42-52); HEMOGLOBIN 8.9 g/dL (14.0-18.0); IG# 0.01 K/uL (0.00-0.02); LYMPH % 2.5 %; LYMPH ABS # 0.08 K/uL (1.2-3.4); MEAN CELL VOLUME 90.7 fL (80-100); MEAN CORPUSCULAR HEMOGLOBIN 28.6 pg (25-34); MEAN CORPUSCULAR HGB CONC 31.6 g/dl (32-36); MEAN PLATELET VOLUME 8.9 fL (7.4-10.4); MONO % 2.8 %; MONO ABS # 0.09 K/uL (0.11-0.59); NEUT % 94.1 %; PLATELET COUNT 133 K/uL (130-400); RED CELL DISTRIBUTION WIDTH SD 50.3 fL (36.4-46.3); WHITE BLOOD COUNT 3.19 K/uL (4.8-10.8)
[2017-12-19 09:25] LABS: ALKALINE PHOSPHATASE 94 U/L (45-117); ALT/SGPT 27 U/L (12-78); AST/SGOT 17 U/L (15-37); BLOOD UREA NITROGEN 23 mg/dl (7-18); CALCIUM 8.1 mg/dl (8.5-10.1); CARBON DIOXIDE 24 mmol/L (21-32); CREATININE 0.98 mg/dl (0.60-1.40); GLUCOSE 144 mg/dl (70-99); POTASSIUM 4.7 mmol/L (3.5-5.1); SODIUM 135 mmol/L (136-145); TOTAL PROTEIN 5.7 gm/dl (6.4-8.2)
== END | disposition home or self-care (01) ==
LOC: C.LABSPEC 08:34
PROVIDERS: ATTEND Internal Medicine Hematology & Oncology
DX: C34.90 Malignant neoplasm of unspecified part of unspecified bronchus or lung (principal)

== ENCOUNTER → 2017-12-23 | Outpatient (CLI) | payer OTHER ==
[2017-12-23 08:26] LABS: HEMATOCRIT 29.4 % (42-52); HEMOGLOBIN 9.3 g/dL (14.0-18.0); IG# 0.01 K/uL (0.00-0.02); LYMPH % 5.4 %; LYMPH ABS # 0.09 K/uL (1.2-3.4); MEAN CELL VOLUME 91.6 fL (80-100); MEAN CORPUSCULAR HGB CONC 31.6 g/dl (32-36); MEAN PLATELET VOLUME 9.5 fL (7.4-10.4); MONO % 0.6 %; MONO ABS # 0.01 K/uL (0.11-0.59); NEUT % 93.4 %; NEUT ABS # 1.57 K/uL (1.4-6.5); PLATELET COUNT 116 K/uL (130-400); RED CELL DISTRIBUTION WIDTH CV 16.4 % (11.5-14.5); RED CELL DISTRIBUTION WIDTH SD 51.7 fL (36.4-46.3); WHITE BLOOD COUNT 1.68 K/uL (4.8-10.8)
[2017-12-23 08:49] LABS: ALKALINE PHOSPHATASE 120 U/L (45-117); ALT/SGPT 21 U/L (12-78); AST/SGOT 14 U/L (15-37); BLOOD UREA NITROGEN 32 mg/dl (7-18); CALCIUM 8.5 mg/dl (8.5-10.1); CARBON DIOXIDE 18 mmol/L (21-32); CREATININE 1.35 mg/dl (0.60-1.40); GLUCOSE 362 mg/dl (70-99); POTASSIUM 4.9 mmol/L (3.5-5.1); SODIUM 133 mmol/L (136-145); TOTAL PROTEIN 6.1 gm/dl (6.4-8.2)
== END | disposition home or self-care (01) ==
LOC: C.LABSPEC 08:11
PROVIDERS: ATTEND Internal Medicine Hematology & Oncology
DX: C34.90 Malignant neoplasm of unspecified part of unspecified bronchus or lung (principal)

== ENCOUNTER → 2017-12-27 | Outpatient (CLI) | payer OTHER ==
[2017-12-27 14:27] LABS: ALBUMIN 2.2 gm/dl (3.4-5.0); ALKALINE PHOSPHATASE 102 U/L (45-117); ALT/SGPT 22 U/L (12-78); AST/SGOT 18 U/L (15-37); BLOOD UREA NITROGEN 25 mg/dl (7-18); CALCIUM 8.1 mg/dl (8.5-10.1); CARBON DIOXIDE 25 mmol/L (21-32); CREATININE 0.88 mg/dl (0.60-1.40); GLUCOSE 121 mg/dl (70-99); POTASSIUM 4.7 mmol/L (3.5-5.1); SODIUM 133 mmol/L (136-145); TOTAL PROTEIN 5.7 gm/dl (6.4-8.2)
[2017-12-27 14:51] LABS: HEMATOCRIT 28.3 % (42-52); MEAN CELL VOLUME 89.6 fL (80-100); MEAN CORPUSCULAR HEMOGLOBIN 28.5 pg (25-34); MEAN CORPUSCULAR HGB CONC 31.8 g/dl (32-36); RED CELL DISTRIBUTION WIDTH CV 16.6 % (11.5-14.5); WHITE BLOOD COUNT 1.07 K/uL (4.8-10.8)
[2017-12-27 14:55] LABS: MEAN PLATELET VOLUME 8.9 fL (7.4-10.4); PLATELET COUNT 88 K/uL (130-400)
[2017-12-27 14:57] LABS: LYMPH % 13.1 %; LYMPH ABS # 0.14 K/uL (1.2-3.4); MONO % 3.7 %; MONO ABS # 0.04 K/uL (0.11-0.59); NEUT % 83.2 %; NEUT ABS # 0.89 K/uL (1.4-6.5)
== END | disposition home or self-care (01) ==
LOC: C.LABSPEC 13:56
PROVIDERS: ATTEND Internal Medicine Hematology & Oncology
DX: C34.90 Malignant neoplasm of unspecified part of unspecified bronchus or lung (principal)

== ENCOUNTER 2018-01-02 14:44 | Inpatient (IN) | payer OTHER ==
[~2018-01-02] VITALS: Ht 180.3 cm; Wt 106.9 kg
[2018-01-02] MEDS ORDERED: SODIUM CHLORIDE 0.9% 1000ML 1,000 ML IV STA (15:00)
--- NOTE | 2018-01-02 15:10 | EMERGENCY ROOM VISIT NOTE ---
History Report prepared by Kongibe: Nerissa Mark Under the Supervision of: Dr. Paco Rodriguez M.D. First contact with patient: 14:52 Stated Complaint: NEAR SYNCOPE/WEAKNESS/HYPOGLYCEMIA History of Present Illness The patient is a 77 year old male who presents to the Emergency Room with complaints of persistent weakness. He was brought to the ED via EMS. Nursing states the patient is an insulin dependent diabetic and his BSG was 41 on EMS arrival. He was given oral glucose in the field and apple juice in the ED. He is currently taking chemotherapy and radiation for a history of lung cancer and most recently underwent radiation this morning. On his bus ride home from the appointment, he began to feel light headed, and as he was getting out of the bus , he experienced a near syncopal episode, but his son was able to help him to the ground, where his head "scraped against a rock". He denies any LOC. The patient states he did eat breakfast this morning and has been taking his medications as prescribed. He is chronically on 4 to 5 L NC for a history of COPD. 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 A total of 10 systems reviewed and were otherwise negative. Past Medical & Surgical Medical Problems: (1) Acute cholecystitis (2) CHF (congestive heart failure) (3) COPD (chronic obstructive pulmonary disease) (4) Flank pain (5) HTN (hypertension) (6) Hypercholesteremia (7) Hypoglycemia (8) Hypoxia (9) Idiopathic pulmonary fibrosis (10) Malignant neoplasm of lower lobe of right lung (11) Neutropenia (12) Palliative care encounter (13) Pneumonia (14) Sepsis (15) Syncope Family History Cancer (lung, colon, lymphoma) Diabetes mellitus Gallbladder disease Heart disease Hypertension Kidney disease Lung disease Myocardial infarction Social History Smoking Status: Former Smoker Alcohol Use: none Drug Use: none Marital Status: Housing Status: lives alone Occupation Status: retired Current/Historical Medications Scheduled Albuterol Sulf (Albuterol Sulfate), 2.5 MG INH HS Aspirin Enteric Coated (Ecotrin Or Generic), 81 MG PO QAM Atenolol (Atenolol), 25 MG PO DAILY Atorvastatin (Lipitor), 40 MG PO HS Diltiazem Hcl Coated Beads (Cartia Xt), 120 MG PO DAILY Furosemide (Lasix), 20 MG PO Q2D Insulin Aspart (Novolog Flexpen), SQ UD Insulin Glargine (Basaglar Kwikpen), 1 DOSE SQ UD Metformin Hcl (Glucophage), 850 MG PO QPM Omeprazole (Prilosec), 20 MG PO DAILY Pioglitazone Hcl (Pioglitazone Hcl), 30 MG PO DAILY Umeclidinium-Vilanterol (Anoro Ellipta 62.5-25 Mcg/INH), 1 PUFF INH DAILY Allergies Coded Allergies: NO KNOWN DRUG ALLERGIES (Verified Allergy, Unknown, ., 01/02/18) Physical Exam Vital Signs Date Time Temp Pulse Resp B/P (MAP) Pulse Ox O2 Delivery O2 Flow Rate FiO2 01/02/18 16:42 91 24 119/63 97 Nasal Cannula 5.0 01/02/18 15:27 82 01/02/18 15:16 36.7 86 18 130/61 94 Nasal Cannula 5.0 Physical Exam GENERAL: Awake, alert, well-appearing, in no acute distress HENT: Normocephalic, atraumatic. 3 superficial scrapes to right side of head. Oropharynx unremarkable. EYES: Normal conjunctiva. Sclera non-icteric. NECK: Supple. No nuchal rigidity. FROM. No JVD. RESPIRATORY: Clear to auscultation. CARDIAC: Regular rate, normal rhythm. Extremities warm and well perfused. Pulses equal. ABDOMEN: Soft, non-distended. No tenderness to palpation. No rebound or guarding. No masses. RECTAL: Deferred. MUSCULOSKELETAL: Chest examination reveals no tenderness. The back is symmetrical on inspection without obvious abnormality. There is no CVA tenderness to palpation. No joint edema. LOWER EXTREMITIES: Calves are equal size bilaterally and non-tender. No edema. No discoloration. NEURO: Normal sensorium. No sensory or motor deficits noted. SKIN: No rash or jaundice noted. Medical Decision & Procedures ER Provider Diagnostic Interpretation: Radiology results as stated below per my review and radiologist interpretation: CHEST ONE VIEW PORTABLE CLINICAL HISTORY: Pt c/o hypoglcemia COMPARISON STUDY: 12/14/2017 FINDINGS: Chronic basilar fibrotic change. Baseline emphysematous change. Central catheter in superior vena cava. IMPRESSION: Unchanged exam. Diffuse parenchymal fibrotic change. Stable emphysematous change. The above report was generated using voice recognition software. It may contain grammatical, syntax or spelling errors. Electronically signed by: Pritesh Jordan M.D. 01/02/2018 3:44 PM Laboratory Results 01/02/18 15:00 Red Blood Count 2.93, Mean Corpuscular Volume 90.1, Mean Corpuscular Hemoglobin 29.0, Mean Corpuscular Hemoglobin Concent 32.2, Mean Platelet Volume 9.8, Neutrophils (%) (Auto) 75.0, Lymphocytes (%) (Auto) 20.0, Monocytes (%) (Auto) 5.0, Eosinophils (%) (Auto) 0.0, Basophils (%) (Auto) 0.0, Neutrophils # (Auto) 0.45, Lymphocytes # (Auto) 0.12, Monocytes # (Auto) 0.03, Eosinophils # (Auto) 0.00, Basophils # (Auto) 0.00 01/02/18 15:00 Test 01/02/18 15:00 01/02/18 15:52 01/02/18 15:53 01/02/18 16:28 White Blood Count 0.60 K/uL (4.8-10.8) Red Blood Count 2.93 M/uL (4.7-6.1) Hemoglobin 8.5 g/dL (14.0-18.0) Hematocrit 26.4 % (42-52) Mean Corpuscular Volume 90.1 fL (80-100) Mean Corpuscular Hemoglobin 29.0 pg (25-34) Mean Corpuscular Hemoglobin Concent 32.2 g/dl (32-36) Platelet Count 105 K/uL (130-400) Mean Platelet Volume 9.8 fL (7.4-10.4) Neutrophils (%) (Auto) 75.0 % Lymphocytes (%) (Auto) 20.0 % Monocytes (%) (Auto) 5.0 % Eosinophils (%) (Auto) 0.0 % Basophils (%) (Auto) 0.0 % Neutrophils # (Auto) 0.45 K/uL (1.4-6.5) Lymphocytes # (Auto) 0.12 K/uL (1.2-3.4) Monocytes # (Auto) 0.03 K/uL (0.11-0.59) Eosinophils # (Auto) 0.00 K/uL (0-0.5) Basophils # (Auto) 0.00 K/uL (0-0.2) RDW Standard Deviation 52.5 fL (36.4-46.3) RDW Coefficient of Variation 17.1 % (11.5-14.5) Immature Granulocyte % (Auto) 0.0 % Immature Granulocyte # (Auto) 0.00 K/uL (0.00-0.02) Nucleated RBC Absolute Count (auto) 0.03 K/uL (0-0) Nucleated Red Blood Cells % 5.6 % Large Platelets 1+ Anisocytosis PRESENT Prothrombin Time 9.8 SECONDS (9.0-12.0) Prothromb Time International Ratio 0.9 (0.9-1.1) Activated Partial Thromboplast Time 25.2 SECONDS (21.0-31.0) Partial Thromboplastin Ratio 1.0 Anion Gap 4.0 mmol/L (3-11) Est Creatinine Clear Calc Drug Dose 77.8 ml/min Estimated GFR () 84.4 Estimated GFR (Non- 72.8 BUN/Creatinine Ratio 23.7 (10-20) Calcium Level 7.6 mg/dl (8.5-10.1) Total Bilirubin 0.5 mg/dl (0.2-1) Direct Bilirubin 0.2 mg/dl (0-0.2) Aspartate Amino Transf (AST/SGOT) 19 U/L (15-37) Alanine Aminotransferase (ALT/SGPT) 27 U/L (12-78) Alkaline Phosphatase 116 U/L (45-117) Total Protein 5.7 gm/dl (6.4-8.2) Albumin 2.2 gm/dl (3.4-5.0) Lipase 118 U/L (73-393) Total Creatine Kinase 26 U/L (39-308) Creatine Kinase MB < 1.0 ng/ml (0.5-3.6) Creatine Kinase MB Ratio (0-3.0) Troponin I < 0.015 ng/ml (0-0.045) Bedside Glucose 106 mg/dl (70-99) Urine Color DK YELLOW Urine Appearance CLEAR (CLEAR) Urine pH 8.5 (4.5-7.5) Urine Specific [place] 1.022 (1.000-1.030) Urine Protein 2+ (NEG) Urine Glucose (UA) NEG (NEG) Urine Ketones NEG (NEG) Urine Occult Blood NEG (NEG) Urine Nitrite NEG (NEG) Urine Bilirubin NEG (NEG) Urine Urobilinogen NEG (NEG) Urine Leukocyte Esterase NEG (NEG) Urine WBC (Auto) 1-5 /hpf (0-5) Urine RBC (Auto) 0-4 /hpf (0-4) Urine Hyaline Casts (Auto) 1-5 /lpf (0-5) Urine Epithelial Cells (Auto) 20-30 /lpf (0-5) Urine Bacteria (Auto) NEG (NEG) Labs reviewed by ED physician. Medications Administered Medications (Trade) Dose Ordered Sig/Sharee Route Start Time Stop Time Status Last Admin Dose Admin Cefepime HCl 1000 mg/Dextrose 111 ml @ 200 mls/hr NOW STAT IV 01/02/18 15:53 01/02/18 16:26 DC 01/02/18 16:40 200 MLS/HR Vancomycin HCl (Vancomycin 1gm Ed/Asu Omnicell) 1 gm NOW STAT IV 01/02/18 15:53 01/02/18 15:55 DC 01/02/18 16:40 1 GM ED Course 1454: Past medical records reviewed. The patient was evaluated in room B6. A complete history and physical examination was performed. 1552: The patient has signed a consent for blood. I explained we may not need it , depending on what the hospital medicine team wants. 1615: I discussed the patients case with Dr. Meyer, [facility] Hospitalist. The patient will be further evaluated. Medical Decision Differential diagnosis: Etiologies such as metabolic, infection, hypo/hyperglycemia, electrolyte abnormalities, cardiac sources, intracerebral event, toxicologic, neurologic, as well as others were entertained. This is a 77-year-old male who presents the emergency department over concerns of persistent hypoglycemia. The patient had radiation performed for lung cancer today. He was lowered to the ground by family and scraped his head on a rock. He denies hitting his head and denies any headache or head pain. He is pancytopenic. Due to the persistent hypoglycemia I am concerned that this could be an early sepsis as the patient's absolute neutrophil count is 0. For this reason the patient was pancultured and started on cefepime as well as vancomycin. I did discuss the case with the hospitalist service who agreed to admit the patient. Patient was in agreement with the treatment plan. Medication Reconcilliation Current Medication List: was personally reviewed by me Blood Pressure Screening Patient's blood pressure: Normal blood pressure Blood pressure disposition: Did not require urgent referral Consults Time Called: 1610 Consulting Physician: Dr. Meyer [facility] Hospitalist Returned Call: 1615 I discussed the [facility] The patient will be further evaluated. Impression Primary Impression: Pancytopenia Scribe Attestation The scribe's documentation has been prepared under my direction and personally reviewed by me in its entirety. I confirm that the note above accurately reflects all work, treatment, procedures, and medical decision making performed by me. Departure Information Dispostion Being Evaluated By Hospitalist Referrals Liliana Oliver M.D. (PCP)
[2018-01-02 15:28] LABS: HEMATOCRIT 26.4 % (42-52); HEMOGLOBIN 8.5 g/dL (14.0-18.0); MEAN CELL VOLUME 90.1 fL (80-100); MEAN CORPUSCULAR HGB CONC 32.2 g/dl (32-36); MEAN PLATELET VOLUME 9.8 fL (7.4-10.4); NUCLEATED RED BLOOD CELL ABS 0.03 K/uL (0-0); PLATELET COUNT 105 K/uL (130-400); RED CELL DISTRIBUTION WIDTH CV 17.1 % (11.5-14.5); RED CELL DISTRIBUTION WIDTH SD 52.5 fL (36.4-46.3)
[2018-01-02 15:39] LABS: ALBUMIN 2.2 gm/dl (3.4-5.0); CALCIUM 7.6 mg/dl (8.5-10.1); POTASSIUM 4.5 mmol/L (3.5-5.1); TOTAL PROTEIN 5.7 gm/dl (6.4-8.2)
[2018-01-02 15:42] LABS: LYMPH ABS # 0.12 K/uL (1.2-3.4); MONO ABS # 0.03 K/uL (0.11-0.59); NEUT ABS # 0.45 K/uL (1.4-6.5)
--- NOTE | 2018-01-02 15:45 | DIAGNOSTIC IMAGING REPORT ---
CHEST ONE VIEW PORTABLE CLINICAL HISTORY: Pt c/o hypoglcemia COMPARISON STUDY: 12/14/2017 FINDINGS: Chronic basilar fibrotic change. Baseline emphysematous change. Central catheter in superior vena cava. IMPRESSION: Unchanged exam. Diffuse parenchymal fibrotic change. Stable emphysematous change. The above report was generated using voice recognition software. It may contain grammatical, syntax or spelling errors. Electronically signed by: Pritesh Jordan M.D. 01/02/2018 3:44 PM Dictated Date/Time: 01/02/2018 3:43 PM
[2018-01-02] MEDS ORDERED: VANCOMYCIN 1GM ED/ASU OMNICELL IV STA (15:53)
[2018-01-02] MEDS ORDERED: CEFEPIME IV 1,000 MG in DEXTROSE 5% 100ML 100 ML IV STA (15:53)
[2018-01-02 16:30] LABS: CKMB < 1.0 ng/ml (0.5-3.6)
[2018-01-02] MEDS ORDERED: DEXTROSE 5% 1000ML 1,000 ML IV SCH (16:30)
[2018-01-02 17:00] VITALS: O2SAT 97; BMI 32.6
[2018-01-02] MEDS ORDERED: ONDANSETRON INJ 2 MG/ML 2 ML VIAL IV PRN (17:00)
[2018-01-02] MEDS ORDERED: POLYETHYLENE (MIRALAX) 17 GM PACK PO PRN (17:00)
[2018-01-02] MEDS ORDERED: ACETAMINOPHEN 325 MG TAB PO PRN (17:00)
[2018-01-02] MEDS ORDERED: DEXTROSE 50% 50 ML SYR IV PRN (17:15)
[2018-01-02] MEDS ORDERED: GLUCOSE 10 TABS/TUBE PO PRN (17:15)
[2018-01-02] MEDS ORDERED: CARBOHYDRATES FOR HYPOGLYCEMIA PO PRN (17:15)
[2018-01-02] MEDS ORDERED: GLUCOSE 40% GEL 15 GM TUBE PO PRN (17:15)
[2018-01-02] MEDS ORDERED: GLUCAGON FOR INJ 1 MG VIAL IM PRN (17:15)
[2018-01-02 17:39] LABS: INR 0.9 (0.9-1.1); PTT PATIENT 25.2 SECONDS (21.0-31.0)
[2018-01-02 18:06] VITALS: BP 153/73; PULSE 87; TEMP 36.4; O2SAT 97
[2018-01-02] MEDS: ALBUTEROL 0.083% NEBU SOLN 3 ML VIAL INH SCH (19:01)
[2018-01-02 19:09] VITALS: PULSE 94; O2SAT 91
[2018-01-02] MEDS: SODIUM CHLORIDE 0.9% 1000ML 1,000 ML IV SCH (19:19)
[2018-01-02 20:00] VITALS: BP 128/76; PULSE 91; TEMP 36.5; O2SAT 96
[2018-01-02] MEDS: ATORVASTATIN 40 MG TAB PO SCH (20:42)
[2018-01-02] MEDS: HEPARIN SOD 5000 UNIT/0.5 ML CARP SQ SCH (20:42)
[2018-01-02] MEDS: INSULIN ASPART 100 UNITS/ML 3 ML PEN SC SCH (20:44)
[2018-01-02] MEDS ORDERED: INSULIN GLARGINE SOLOSTAR 100 UNITS/ML 3 ML PEN SC SCH (21:00)
--- NOTE | 2018-01-02 22:29 | History and Physical ---
History & Physical Date & Time of Service: Jan 02, 2018 at 22:11 Chief Complaint: Hypoglycemia, Neutropenia Primary Care Physician: Liliana Oliver M.D. History of Present Illness Source: patient, family, hospital records 77 yo male with recent history of small cell lung cancer currently undergoing chemotherapy and radiation therapy, pulmonary fibrosis, atrial fibrillation with RVR presented to the ED today due to generalized weakness and a witnessed fall at home. The patient has been undergoing chemotherapy for 5 weeks now, scheduled to finish last cycle next week. Typically gets chemo on Saturday and then gets radiation daily the rest of the week. He says that overall he has been tolerating treatment well. No severe nausea/vomiting from chemotherapy, appetite has been intact. Per patient and his family, he actually seems more energized after radiation therapy. However, over the past several days he has been getting weaker. They even mentioned that oncologist was considering holding off on chemo next week based on how he was feeling as well as some thrombocytopenia. He went to radiation therapy but his son noted that on his way there, his balance seemed to be off. He got off the bus from radiation therapy at home and went to walk into the house. His son noticed that he appeared weak and fortunately was right by his side when the patient fell. He described feeling as if his legs gave out. He never lost consciousness, was talking the entire time. He was lowered to the ground. His head ended up resting on a rock but at no time did he actually strike his head. EMS was called since the patient was too weak to get up and he was brought to the ED. In the ED his vitals were stable, he was saturating well on 5L NC which is his baseline with pulmonary fibrosis. Labs showed that he was neutropenic and pancytopenic, WBC 0.6, Hb 8.5, platelets 100k. Cr was stable at 1.0 and electrolytes stable. His sugar was low at 58. Given dextrose and a lunch tray , started feeling better. Says that he typically has no issues with hypoglycemia, he follows very closely with Dr. Mock. With respect to his neutropenia, he cannot recall having it before with the chemotherapy. He denies and fevers, chills, sweats. No cough, no dysuria, no abdominal pain, no vomiting, no diarrhea. Past Medical/Surgical History Medical Problems: (1) Acute cholecystitis (2) Atrial fibrillation with RVR (3) CHF (congestive heart failure) (4) COPD (chronic obstructive pulmonary disease) (5) Cystic fibrosis (6) Fall (7) Flank pain (8) Head injury, closed (9) HTN (hypertension) (10) Hypercholesteremia (11) Hypoglycemia (12) Hypomagnesemia (13) Hypomagnesemia (14) Hypotension (15) Hypoxia (16) Hypoxia (17) Idiopathic pulmonary fibrosis (18) Lung neoplasm (19) Malignant neoplasm of lower lobe of right lung (20) Near syncope (21) Neutropenia (22) Palliative care encounter (23) Pneumonia (24) Pneumonia (25) Sepsis (26) Syncope Family History Cancer (lung, colon, lymphoma) Diabetes mellitus Gallbladder disease Heart disease Hypertension Kidney disease Lung disease Myocardial infarction Social History Smoking Status: Former Smoker Drug Use: none Marital Status: Housing status: lives with family Occupational Status: retired Immunizations History of Influenza Vaccine: No History of Tetanus Vaccine?: Yes History of Pneumococcal: Yes History of Hepatitis B Vaccine: Unknown Allergies Coded Allergies: NO KNOWN DRUG ALLERGIES (Verified Allergy, Unknown, ., 01/02/18) Home Medications Scheduled Albuterol Sulf (Albuterol Sulfate), 2.5 MG INH HS Aspirin Enteric Coated (Ecotrin Or Generic), 81 MG PO QAM Atenolol (Atenolol), 25 MG PO DAILY Atorvastatin (Lipitor), 40 MG PO HS Diltiazem Hcl Coated Beads (Cartia Xt), 120 MG PO DAILY Furosemide (Lasix), 20 MG PO Q2D Insulin Aspart (Novolog Flexpen), SQ UD Insulin Glargine (Basaglar Kwikpen), 1 DOSE SQ UD Metformin Hcl (Glucophage), 850 MG PO QPM Omeprazole (Prilosec), 20 MG PO DAILY Pioglitazone Hcl (Pioglitazone Hcl), 30 MG PO DAILY Umeclidinium-Vilanterol (Anoro Ellipta 62.5-25 Mcg/INH), 1 PUFF INH DAILY Review of Systems Constitutional: + weakness, + fatigue, No fever, No chills, No sweats, No weight loss, No problem reported Eyes: No worsening of vision, No eye pain, No redness, No discharge, No diplopia, No problem reported ENT: No hearing loss, No unusual epistaxis, No nasal symptoms, No sore throat, No tinnitus, No dental problems, No trouble swallowing, No problem reported Respiratory: + dyspnea on exertion, No cough, No sputum, No wheezing, No shortness of breath, No dyspnea at rest, No hemoptysis, No problem reported Cardiovascular: No chest pain, No orthopnea, No PND, No edema, No claudication , No palpitations, No problem reported Abdomen: No pain, No nausea, No vomiting, No diarrhea, No constipation, No GI bleeding, No problem reported Musculoskeletal: No joint pain, No muscle pain, No swelling, No calf pain, No problem reported Genitourinary - Male: No hematuria, No dysuria, No urinary frequency, No urinary urgency Neurologic: + weakness, + balance problems, No memory loss, No paralysis, No numbness/tingling, No vertigo Psychiatric: No depression symptoms, No anhedonism, No anxiety, No insomnia, No substance abuse, No problem reported Endocrine: + fatigue, No excessive thirst, No excessive urination, No problem reported Hematologic / Lymphatic: No abnormal bleeding/bruising, No clotting problems, No swollen lymph nodes, No night sweats, No problem reported Integumentary: No rash, No itch, No new/changing skin lesions, No color change , No bleeding, No problem reported Allergic / Immunologic: No environmental allergies, No seasonal allergies, No pet sensitivities, No food allergies, No hives, No frequent infections, No poor healing, No prolonged convalescence, No problem reported Physical Exam Vital Signs Date Time Temp Pulse Resp B/P (MAP) Pulse Ox O2 Delivery O2 Flow Rate FiO2 01/02/18 20:00 36.5 91 20 128/76 (93) 96 Nasal Cannula 4.0 01/02/18 19:09 94 18 91 Nasal Cannula 4.0 01/02/18 18:06 36.4 87 21 153/73 (99) 97 Nasal Cannula 4.0 01/02/18 17:30 83 18 115/67 97 01/02/18 17:00 97 Nasal Cannula 5.0 01/02/18 16:42 91 24 119/63 97 Nasal Cannula 5.0 01/02/18 15:27 82 01/02/18 15:16 36.7 86 18 130/61 94 Nasal Cannula 5.0 General Appearance: no apparent distress, + obese Head: normocephalic, atraumatic Eyes: normal inspection, EOMI, sclerae normal ENT: normal ENT inspection, hearing grossly normal, pharynx normal Neck: supple, no adenopathy, no JVD, trachea midline Respiratory/Chest: chest non-tender, lungs clear, normal breath sounds, no respiratory distress, no accessory muscle use Cardiovascular: regular rate, rhythm, no edema, no gallop, no JVD, no murmur, normal peripheral pulses Abdomen/GI: normal bowel sounds, non tender, soft, no organomegaly Back: normal inspection, no CVA tenderness, no muscle spasm, normal range of motion Extremities/Musculoskelatal: normal inspection, no calf tenderness, normal capillary refill, no pedal edema, normal range of motion, non-tender, pelvis stable Neurologic/Psych: utilization engineer II-XII nml as tested, no motor/sensory deficits, alert, normal mood/affect, normal reflexes, oriented x 3 Skin: normal color, warm/dry, no rash Diagnostics Laboratory Results Results Past 24 Hours Test 01/02/18 14:48 01/02/18 15:00 01/02/18 15:24 01/02/18 15:52 Range/Units Bedside Glucose 58 79 70-99 mg/dl White Blood Count 0.60 4.8-10.8 K/uL Red Blood Count 2.93 4.7-6.1 M/uL Hemoglobin 8.5 14.0-18.0 g/dL Hematocrit 26.4 42-52 % Mean Corpuscular Volume 90.1 80-100 fL Mean Corpuscular Hemoglobin 29.0 25-34 pg Mean Corpuscular Hemoglobin Concent 32.2 32-36 g/dl Platelet Count 105 130-400 K/uL Mean Platelet Volume 9.8 7.4-10.4 fL Neutrophils (%) (Auto) 75.0 % Lymphocytes (%) (Auto) 20.0 % Monocytes (%) (Auto) 5.0 % Eosinophils (%) (Auto) 0.0 % Basophils (%) (Auto) 0.0 % Neutrophils # (Auto) 0.45 1.4-6.5 K/uL Lymphocytes # (Auto) 0.12 1.2-3.4 K/uL Monocytes # (Auto) 0.03 0.11-0.59 K/uL Eosinophils # (Auto) 0.00 0-0.5 K/uL Basophils # (Auto) 0.00 0-0.2 K/uL RDW Standard Deviation 52.5 36.4-46.3 fL RDW Coefficient of Variation 17.1 11.5-14.5 % Immature Granulocyte % (Auto) 0.0 % Immature Granulocyte # (Auto) 0.00 0.00-0.02 K/uL Nucleated RBC Absolute Count (auto) 0.03 0-0 K/uL Nucleated Red Blood Cells % 5.6 % Large Platelets 1+ Anisocytosis PRESENT Prothrombin Time 9.8 9.0-12.0 SECONDS Prothromb Time International Ratio 0.9 0.9-1.1 Activated Partial Thromboplast Time 25.2 21.0-31.0 SECONDS Partial Thromboplastin Ratio 1.0 Sodium Level 135 136-145 mmol/L Potassium Level 4.5 3.5-5.1 mmol/L Chloride Level 105 98-107 mmol/L Carbon Dioxide Level 26 21-32 mmol/L Anion Gap 4.0 3-11 mmol/L Blood Urea Nitrogen 24 7-18 mg/dl Creatinine 1.00 0.60-1.40 mg/dl Est Creatinine Clear Calc Drug Dose 77.8 ml/min Estimated GFR () 84.4 Estimated GFR (Non- 72.8 BUN/Creatinine Ratio 23.7 10-20 Random Glucose 88 70-99 mg/dl Calcium Level 7.6 8.5-10.1 mg/dl Total Bilirubin 0.5 0.2-1 mg/dl Direct Bilirubin 0.2 0-0.2 mg/dl Aspartate Amino Transf (AST/SGOT) 19 15-37 U/L Alanine Aminotransferase (ALT/SGPT) 27 12-78 U/L Alkaline Phosphatase 116 45-117 U/L Total Protein 5.7 6.4-8.2 gm/dl Albumin 2.2 3.4-5.0 gm/dl Lipase 118 73-393 U/L Total Creatine Kinase 26 39-308 U/L Creatine Kinase MB < 1.0 0.5-3.6 ng/ml Creatine Kinase MB Ratio 0-3.0 Troponin I < 0.015 0-0.045 ng/ml Test 01/02/18 15:53 01/02/18 16:28 01/02/18 20:40 Range/Units Bedside Glucose 106 158 70-99 mg/dl Urine Color DK YELLOW Urine Appearance CLEAR CLEAR Urine pH 8.5 4.5-7.5 Urine Specific [place] 1.022 1.000-1.030 Urine Protein 2+ NEG Urine Glucose (UA) NEG NEG Urine Ketones NEG NEG Urine Occult Blood NEG NEG Urine Nitrite NEG NEG Urine Bilirubin NEG NEG Urine Urobilinogen NEG NEG Urine Leukocyte Esterase NEG NEG Urine WBC (Auto) 1-5 0-5 /hpf Urine RBC (Auto) 0-4 0-4 /hpf Urine Hyaline Casts (Auto) 1-5 0-5 /lpf Urine Epithelial Cells (Auto) 20-30 0-5 /lpf Urine Bacteria (Auto) NEG NEG Microbiology Results 01/02/18 Blood Culture, Received Pending 01/02/18 Blood Culture, Received Pending Diagnostic Radiology Chest x-ray IMPRESSION: Unchanged exam. Diffuse parenchymal fibrotic change. Stable emphysematous change. EKG sinus with 1st degree AV block Impression Assessment and Plan 77 yo male with complicated history of IPF, small cell lung cancer, afib with RVR and now with weakness, pancytopenia, hypoglycemia - Neutropenia due to anti-neoplastic therapy neutropenic precautions, repeat CBC in the AM Cefepime 1gm IV q12 prophylactically for 48 hours blood cultures drawn no specific symptoms of fever/chills consult oncology - Pancytopenia: Hb low at 8.5 and platelets 100k monitor daily, no indication for transfusion currently - Hypoglycemia: not eating as well as normal past day will cut Lantus to 20 units at night Novolog SS with correction factor 30 and carb ratio of 10 treated with dextrose in the ED eating well, no need for D5 in fluids at this time - Small cell lung cancer: consult oncology, last chemo was Saturday this week plan for radiation therapy tomorrow, will notify them in the morning - Idiopathic pulmonary fibrosis, chronic hypoxic respiratory failure continue supplemental oxygen - Recent paroxysmal afib with RVR continue Atenolol and Diltiazem currently in sinus with 1st degree AV block discussion last admission regarding anticoagulation, decided that risk of bleeding too high follows with [facility] cardiology - Weakness, fall, no evidence of syncope, never lost consciousness likely due to deconditioning from cancer treatment consult PT/OT DVT prophylaxis: Heparin SC, follow platelets, if they drop lower then hold on chemical prophylaxis Full code, discussed with patient and family Advanced Directives Existing Living Will: No 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
[2018-01-02 23:58] VITALS: BP 127/70; PULSE 85; TEMP 36.6; O2SAT 92
[2018-01-03] VITALS (7 sets, daily range): BP systolic 120–134; BP diastolic 48–75; PULSE 75–92; TEMP 36.5–36.9; O2SAT 89–100; BMI 32.4
[2018-01-03] MEDS: CEFEPIME IV 1,000 MG in SYRINGE 0 ML IV SCH ×2 (04:01→16:03)
[2018-01-03] MEDS: SODIUM CHLORIDE 0.9% 1000ML 1,000 ML IV SCH (04:02)
[2018-01-03] MEDS: HEPARIN SOD 5000 UNIT/0.5 ML CARP SQ SCH ×3 (06:17→20:54)
[2018-01-03] MEDS: INSULIN ASPART 100 UNITS/ML 3 ML PEN SC SCH ×4 (06:30→20:53)
[2018-01-03 06:54] LABS: CALCIUM 7.4 mg/dl (8.5-10.1); CREATININE 0.98 mg/dl (0.60-1.40); POTASSIUM 4.4 mmol/L (3.5-5.1)
[2018-01-03 07:02] LABS: HEMATOCRIT 21.5 % (42-52); MEAN CELL VOLUME 89.2 fL (80-100); MEAN CORPUSCULAR HGB CONC 32.6 g/dl (32-36); MEAN PLATELET VOLUME 9.2 fL (7.4-10.4); PLATELET COUNT 91 K/uL (130-400); RED CELL DISTRIBUTION WIDTH CV 17.3 % (11.5-14.5); RED CELL DISTRIBUTION WIDTH SD 52.9 fL (36.4-46.3)
[2018-01-03 07:07] LABS: EOS ABS # 0.01 K/uL (0-0.5); LYMPH ABS # 0.14 K/uL (1.2-3.4); MONO ABS # 0.03 K/uL (0.11-0.59); NEUT ABS # 0.32 K/uL (1.4-6.5)
[2018-01-03] MEDS: [UNRECOGNIZED DRUG - OTHER] SCH ×3 (08:00→16:03)
--- NOTE | 2018-01-03 08:20 | Clinical Documentation Query ---
CLINICAL DOCUMENTATION QUERY H&P states: - Neutropenia due to anti-neoplastic therapy neutropenic precautions, repeat CBC in the AM Cefepime 1gm IV q12 prophylactically for 48 hours blood cultures drawn no specific symptoms of fever/chills consult oncology - Pancytopenia: Hb low at 8.5 and platelets 100k monitor daily, no indication for transfusion currently In your clinical opinion is this patient being managed for: ( x ) Chemotherapy induced pancytopenia ( ) Not Agree ( ) Other explanation of clinical findings (No explanation is considered a No Response) ( ) Unable to determine ( ) Need to Discuss (Phone CDS or qliq) (No discussion is considered a No Response) The medical record reflects the following clinical findings, treatment, and risk factors. Clinical Indicators: pancytopenia and neutropenia,WBC 0.50, PLT 91, Hgb 7.0, Hct 21.5 Treatment: Daily CBCD, IV Vancomycin, Hematology consult, Risk Factors: receiving chemotherapy Please clarify and document your clinical opinion in the progress notes and discharge summary. Terms such as "probable", "suspected", "likely", "questionable", "possible", or "still to be ruled out" are acceptable. IF IN AGREEMENT, YOU MUST DOCUMENT ABOVE DIAGNOSTIC STATEMENT IN DAILY PROGRESS NOTES AND DISCHARGE SUMMARY. This document is not part of the patient's record. Thank You, Matt Damon RN [phone] & via [facility]
[2018-01-03] MEDS: ASPIRIN 81 MG ECTAB PO SCH (08:59)
[2018-01-03] MEDS: DILTIAZEM HCL 120 MG CAPCR PO SCH (09:00)
[2018-01-03] MEDS: PANTOprazole SOD 40 MG TAB PO SCH (09:01)
[2018-01-03] MEDS: MAGNESIUM OXIDE 400 MG TAB PO SCH (09:01)
--- NOTE | 2018-01-03 09:58 | ONCOLOGY CONSULTATION ---
DATE OF CONSULTATION: 01/03/2018 REASON FOR CONSULTATION: Status post fall and neutropenia. 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 Apparently, Abhinav was returning home from radiation when he states he began to feel a little flush, lightheaded, and subsequently fell to the ground. There was no loss of consciousness or witnessed seizure activity. He did suffer abrasions in the right side of his face. His son witnessed fall and immediately summoned EMS to bring Mr. Carlson to the ER. Apparently, his blood sugar was low on admission. Glucose measuring 58. His last chemotherapy was administered on 12/30. He is about 3/4th through combined modality therapy and on the whole he has done reasonably well. His labs on admission, particularly CBC reveals a total white count of 500, hemoglobin of 7, and platelet count of 91,000. Clinically, again Mr. Carlson is sitting at bedside. He is conversant, awake, alert, and appropriate. 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 MEDICATIONS PRIOR TO ADMISSION: Albuterol 2.5 mg inhaled at bedtime, aspirin 81 mg p.o. daily, atenolol 25 mg p.o. daily, Lipitor 40 mg p.o. daily, diltiazem 120 mg p.o. daily, Lasix 20 mg p.o. every other day, insulin aspart subQ daily, Glargine 1 dose subQ daily, metformin 850 mg p.o. q.p.m., Prilosec 20 mg p.o. daily, pioglitazone 30 mg p.o. daily, Anoro Ellipta 62.5/25 mcg per inhalation 1 puff inhaled daily. ALLERGIES: No known drug allergies. SOCIAL HISTORY: He is retired. He is , lives with his family. He is a reformed smoker, nondrinker. FAMILY HISTORY: Positive for pulmonary disease, coronary artery disease, kidney disease, hypertension, diabetes mellitus, cancers including lung, colon, and lymphoma. REVIEW OF SYSTEMS: As per HPI, most notably for generalized weakness and fatigue, decreased exercise tolerance. He reports no fevers, chills, or sweats. His appetite has been vigorous. SKIN: No rashes or lesions. No history of dermatosis. He does have a couple of abrasions on the right side of his forehead from fall. HEENT: He denies headaches, lightheadedness, or dizziness at present. No acute visual or hearing deficits. No sinus symptoms, sore throat, or dysphagia. LYMPH: No history of lymphoproliferative disease. CARDIAC: Positive for atrial fibrillation. No current angina or palpitations. PULMONARY: Positive for idiopathic pulmonary fibrosis and COPD. He is presently not short of breath, dyspneic, or orthopneic. No cough or hemoptysis reported. GASTROINTESTINAL: Negative for abdominal pain, nausea, vomiting, diarrhea, constipation, hematochezia, or melena stools. GENITOURINARY: No hematuria, dysuria, or urinary incontinence. PSYCHIATRIC: Negative for anxiety, depression, or psychoses. ENDOCRINE: Positive for diabetes mellitus. MUSCULOSKELETAL: Positive for weakness, but no overt arthralgias or myalgias. No muscle weakness per se. NEUROLOGIC: Negative for seizures, stroke, or migraine headache. HEMATOLOGIC: Cytopenias attributable to current combined modality treatment. PHYSICAL EXAMINATION: GENERAL: Mr. Aldo cunningham is a pleasant 77-year-old gentleman sitting at bedside, awake, alert and appropriate, in no acute distress at this time. VITAL SIGNS: Temperature 36.7, pulse 75, respiratory rate 20, blood pressure 120/71. SKIN: Other than the aforementioned abrasions, no rashes or lesions. HEENT: Atraumatic, normocephalic. Eyes: PERRLA, EOMI. Nares are patent without rhinorrhea or discharge. Throat is clear. Tongue is midline. No buccal lesions or ulcerations. NECK: Supple. HEART: Regular rate and rhythm. No clicks, rubs, or murmurs. LUNGS: Clear to auscultation bilaterally. ABDOMEN: Soft, nontender, nondistended, without palpable hepatosplenomegaly. EXTREMITIES: Musculoskeletal strength and pulses are equal in all 4 quadrants. No clubbing, cyanosis, or edema otherwise. NEUROLOGICAL: He is awake, alert, and oriented x3. Cranial nerves are grossly intact. LABORATORY DATA: CBC as mentioned above in the HPI. Sodium 137, potassium 4.4, chloride 106, carbon dioxide 24, BUN 25, creatinine 0.98, magnesium decreased at 1.7. Chest x-ray performed in the ER, diffuse parenchymal fibrotic change, otherwise is stable. IMPRESSION: 1. Status post fall, questionable syncope. 2. Hypoglycemia. 3. Hypomagnesemia. 4. Locally advanced non-small cell lung cancer. 5. Type 2 diabetes mellitus. PLAN: Mr. Carlson is a pleasant 77-year-old gentleman under my care for locally advanced non-small cell lung cancer. He has been receiving weekly carboplatin and paclitaxel concurrently with radiation therapy. He was on the way home from his last radiation treatment on the day of admission and apparently fell in his driveway witnessed by his son. The patient did not lose consciousness and there was no witnessed seizure activity. He was brought to the Emergency Room and found to be hypoglycemic. Today, he actually looks relatively well, is awake, alert, and conversant. Abhinav is pancytopenic, attributable to treatment. However, does not require granulocyte colony stimulating growth factor at this time. May want to consider giving him a couple units of blood prior to discharge. I will see him in the office next week before commencing chemotherapy. Replace electrolytes as appropriate. I have nothing further to add at this time, but will continue to follow him periodically throughout his hospital stay. STEPHANIE
[2018-01-03] MEDS ORDERED: NURSING DECISION MEDICATION ORDER SCH (12:30)
[2018-01-03] MEDS ORDERED: SODIUM CHLORIDE 0.65% NA SOLN 45 ML (OCEAN) PRN (13:00)
--- NOTE | 2018-01-03 13:03 | Progress Note ---
Progress Note Date of Service Jan 03, 2018. Progress Note Our office has been notified that the patient was an inpatient. We were notified that he was admitted for hypoglycemia. Upon further review of his electronic medical record it was found that he has pancytopenia. His total white count was 500. Hemoglobin 7.0. Platelets 91,000. Neutrophils 320. With the very low counts radiation therapy will be held. We will review his record on Saturday. We will resume treatment when he has had further improvement of his pancytopenia.
--- NOTE | 2018-01-03 15:05 | Progress Note ---
Subjective Date of Service: Jan 03, 2018. Subjective Pt evaluation today including: conversation w/ patient, physical exam, lab review, conversation w/ optimization consultant, review of inpatient medication list Pain: mild pain in left leg, feels like he twisted it yesterday PO Intake: adequate Voiding: no voiding problems patient feeling better than yesterday, more strength complains that left leg hurt more today than yesterday, but he was able to participate in therapy this morning reviewed labs, platelets down to 90, Hb down to 7.0, WBC down to 0.5 Cr stable, Mag low at 1.7 Problem List Medical Problems: (1) Atrial fibrillation with RVR Status: Acute (2) Cystic fibrosis Status: Acute (3) Fall Status: Acute (4) Head injury, closed Status: Acute (5) Hypomagnesemia Status: Acute (6) Hypomagnesemia Status: Acute (7) Hypotension Status: Acute (8) Hypoxia Status: Acute (9) Lung neoplasm Status: Acute (10) Near syncope Status: Acute (11) Pancytopenia Status: Acute (12) Pneumonia Status: Acute Review of Systems Constitutional: + weakness Musculoskeletal: + joint pain (left knee, left hip) All Other Systems: Reviewed and Negative Medications Current Inpatient Medications Medications (Trade) Dose Ordered Sig/Sharee Route Start Time Stop Time Status Last Admin Dose Admin Heparin Sodium (Porcine) (Heparin Sq 5000 Unit/0.5ml) 5,000 unit Q8H SQ 01/02/18 22:00 02/01/18 16:59 01/03/18 14:36 5,000 UNIT Acetaminophen (Tylenol Tab) 650 mg Q4H PRN PO 01/02/18 17:00 02/01/18 16:59 01/03/18 04:13 650 MG Polyethylene (Miralax Powder Packet) 17 gm DAILY PRN PO 01/02/18 17:00 02/01/18 16:59 Ondansetron HCl (Zofran Inj) 4 mg Q6H PRN IV 01/02/18 17:00 02/01/18 16:59 Cefepime HCl 1000 mg/Syringe 11 ml @ 5.5 mls/min Q12H IV 01/03/18 04:00 01/05/18 03:59 01/03/18 04:01 5.5 MLS/MIN Albuterol Sulfate (Ventolin 0.083% 2.5MG/3ML Neb) 2.5 mg HS INH 01/02/18 21:00 02/01/18 20:59 01/02/18 19:01 2.5 MG Aspirin (Ecotrin Tab) 81 mg QAM PO 01/03/18 08:00 02/02/18 08:59 01/03/18 08:59 81 MG Atenolol (Tenormin Tab) 25 mg DAILY PO 01/03/18 08:00 02/02/18 08:59 01/03/18 09:02 25 MG Atorvastatin Calcium (Lipitor Tab) 40 mg HS PO 01/02/18 21:00 02/01/18 20:59 01/02/18 20:42 40 MG Diltiazem HCl (Cardizem Cd Cap) 120 mg DAILY PO 01/03/18 08:00 02/02/18 08:59 01/03/18 09:00 120 MG Pantoprazole Sodium (Protonix Tab) 40 mg DAILY PO 01/03/18 08:00 02/02/18 08:59 01/03/18 09:01 40 MG Miscellaneous Information (Order Awaiting Action) 1 ea QS N/A 01/03/18 00:00 02/02/18 00:00 Insulin Aspart (novoLOG ASPART) SLIDING SCALE G... ACHS SC 01/02/18 21:00 02/01/18 20:59 01/03/18 12:24 6 UNITS Glucose (Glucose 40% Gel) 15-30 GRAMS 15 GRAMS... UD PRN PO 01/02/18 17:15 02/01/18 17:14 Glucose (Glucose Chew Tab) 4-8 Tablets 4 Tabl... UD PRN PO 01/02/18 17:15 02/01/18 17:14 Dextrose (Dextrose 50% 50ML Syringe) 25-50ML 25ML FOR ... UD PRN IV 01/02/18 17:15 02/01/18 17:14 Glucagon (Glucagon Inj) 1 mg UD PRN IM 01/02/18 17:15 02/01/18 17:14 Carbohydrates (Carbohydrates For Hypoglycemia) 15-30 GRAMS 15 grams if BSG 54-69... UD PRN PO 01/02/18 17:15 9/8/18 17:14 Magnesium Oxide (Mag-Ox Tab) 400 mg QAM PO 01/03/18 08:00 02/02/18 07:59 01/03/18 09:01 400 MG Insulin Glargine (Lantus Solostar Pen) 30 units HS SC 01/03/18 21:00 02/01/18 20:59 Sodium Chloride ([place] Nasal [place]) 1 sprays PRN PRN NA 01/03/18 13:00 02/02/18 12:59 Objective Vital Signs Date Time Temp Pulse Resp B/P (MAP) Pulse Ox O2 Delivery O2 Flow Rate FiO2 01/03/18 14:54 36.5 77 20 134/75 (94) 98 Nasal Cannula 5.0 01/03/18 11:32 36.5 80 20 121/48 (72) 96 Nasal Cannula 5.0 01/03/18 08:00 Room Air 01/03/18 07:22 36.7 75 20 120/71 (87) 96 Nasal Cannula 4.0 01/03/18 04:10 36.9 92 22 131/70 (90) 89 Nasal Cannula 4.0 Humidified Air 01/03/18 00:30 91 Nasal Cannula 4.0 01/02/18 23:58 36.6 85 20 127/70 (89) 92 Room Air 01/02/18 20:00 36.5 91 20 128/76 (93) 96 Nasal Cannula 4.0 01/02/18 19:09 94 18 91 Nasal Cannula 4.0 01/02/18 18:06 36.4 87 21 153/73 (99) 97 Nasal Cannula 4.0 01/02/18 17:30 83 18 115/67 97 01/02/18 17:00 97 Nasal Cannula 5.0 01/02/18 16:42 91 24 119/63 97 Nasal Cannula 5.0 01/02/18 15:27 82 01/02/18 15:16 36.7 86 18 130/61 94 Nasal Cannula 5.0 Physical Exam General Appearance: WD/WN, no apparent distress Eyes: normal inspection, EOMI, sclerae normal ENT: normal ENT inspection, hearing grossly normal, pharynx normal Neck: supple, no adenopathy, no JVD, trachea midline Respiratory/Chest: chest non-tender, lungs clear, normal breath sounds, no respiratory distress, no accessory muscle use Cardiovascular: regular rate, rhythm, no edema, no gallop, no JVD, no murmur Abdomen: normal bowel sounds, non tender, soft, no organomegaly Extremities: normal range of motion, non-tender, normal inspection, no pedal edema, no calf tenderness, pelvis stable 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, no motor/sensory deficits, alert, normal mood/affect, oriented x 3 Skin: normal color, warm/dry, no rash, + pertinent finding (mild abrasion over right forehead) Laboratory Results Last 24 Hours Test 01/02/18 15:00 01/02/18 15:24 01/02/18 15:52 01/02/18 15:53 White Blood Count 0.60 K/uL Red Blood Count 2.93 M/uL Hemoglobin 8.5 g/dL Hematocrit 26.4 % Mean Corpuscular Volume 90.1 fL Mean Corpuscular Hemoglobin 29.0 pg Mean Corpuscular Hemoglobin Concent 32.2 g/dl Platelet Count 105 K/uL Mean Platelet Volume 9.8 fL Neutrophils (%) (Auto) 75.0 % Lymphocytes (%) (Auto) 20.0 % Monocytes (%) (Auto) 5.0 % Eosinophils (%) (Auto) 0.0 % Basophils (%) (Auto) 0.0 % Neutrophils # (Auto) 0.45 K/uL Lymphocytes # (Auto) 0.12 K/uL Monocytes # (Auto) 0.03 K/uL Eosinophils # (Auto) 0.00 K/uL Basophils # (Auto) 0.00 K/uL RDW Standard Deviation 52.5 fL RDW Coefficient of Variation 17.1 % Immature Granulocyte % (Auto) 0.0 % Immature Granulocyte # (Auto) 0.00 K/uL Nucleated RBC Absolute Count (auto) 0.03 K/uL Nucleated Red Blood Cells % 5.6 % Large Platelets 1+ Anisocytosis PRESENT Prothrombin Time 9.8 SECONDS Prothromb Time International Ratio 0.9 Activated Partial Thromboplast Time 25.2 SECONDS Partial Thromboplastin Ratio 1.0 Sodium Level 135 mmol/L Potassium Level 4.5 mmol/L Chloride Level 105 mmol/L Carbon Dioxide Level 26 mmol/L Anion Gap 4.0 mmol/L Blood Urea Nitrogen 24 mg/dl Creatinine 1.00 mg/dl Est Creatinine Clear Calc Drug Dose 77.8 ml/min Estimated GFR () 84.4 Estimated GFR (Non- 72.8 BUN/Creatinine Ratio 23.7 Random Glucose 88 mg/dl Calcium Level 7.6 mg/dl Total Bilirubin 0.5 mg/dl Direct Bilirubin 0.2 mg/dl Aspartate Amino Transf (AST/SGOT) 19 U/L Alanine Aminotransferase (ALT/SGPT) 27 U/L Alkaline Phosphatase 116 U/L Total Protein 5.7 gm/dl Albumin 2.2 gm/dl Lipase 118 U/L Bedside Glucose 79 mg/dl 106 mg/dl Total Creatine Kinase 26 U/L Creatine Kinase MB < 1.0 ng/ml Creatine Kinase MB Ratio Troponin I < 0.015 ng/ml Test 01/02/18 16:28 01/02/18 20:40 01/03/18 05:47 01/03/18 07:30 Urine Color DK YELLOW Urine Appearance CLEAR Urine pH 8.5 Urine Specific [place] 1.022 Urine Protein 2+ Urine Glucose (UA) NEG Urine Ketones NEG Urine Occult Blood NEG Urine Nitrite NEG Urine Bilirubin NEG Urine Urobilinogen NEG Urine Leukocyte Esterase NEG Urine WBC (Auto) 1-5 /hpf Urine RBC (Auto) 0-4 /hpf Urine Hyaline Casts (Auto) 1-5 /lpf Urine Epithelial Cells (Auto) 20-30 /lpf Urine Bacteria (Auto) NEG Bedside Glucose 158 mg/dl 89 mg/dl White Blood Count 0.50 K/uL Red Blood Count 2.41 M/uL Hemoglobin 7.0 g/dL Hematocrit 21.5 % Mean Corpuscular Volume 89.2 fL Mean Corpuscular Hemoglobin 29.0 pg Mean Corpuscular Hemoglobin Concent 32.6 g/dl Platelet Count 91 K/uL Mean Platelet Volume 9.2 fL Neutrophils (%) (Auto) 64.0 % Lymphocytes (%) (Auto) 28.0 % Monocytes (%) (Auto) 6.0 % Eosinophils (%) (Auto) 2.0 % Basophils (%) (Auto) 0.0 % Neutrophils # (Auto) 0.32 K/uL Lymphocytes # (Auto) 0.14 K/uL Monocytes # (Auto) 0.03 K/uL Eosinophils # (Auto) 0.01 K/uL Basophils # (Auto) 0.00 K/uL RDW Standard Deviation 52.9 fL RDW Coefficient of Variation 17.3 % Immature Granulocyte % (Auto) 0.0 % Immature Granulocyte # (Auto) 0.00 K/uL Platelet Estimate DECREASED Sodium Level 137 mmol/L Potassium Level 4.4 mmol/L Chloride Level 106 mmol/L Carbon Dioxide Level 24 mmol/L Anion Gap 7.0 mmol/L Blood Urea Nitrogen 25 mg/dl Creatinine 0.98 mg/dl Est Creatinine Clear Calc Drug Dose 79.2 ml/min Estimated GFR () 86.5 Estimated GFR (Non- 74.6 BUN/Creatinine Ratio 25.4 Random Glucose 81 mg/dl Calcium Level 7.4 mg/dl Magnesium Level 1.7 mg/dl Test 01/03/18 11:31 Bedside Glucose 225 mg/dl Assessment and Plan 77 yo male with complicated history of IPF, small cell lung cancer, afib with RVR and now with weakness, pancytopenia, hypoglycemia - Neutropenia due to anti-neoplastic therapy neutropenic precautions, WBC down to 0.5 today Cefepime 1gm IV q12 prophylactically for 48 hours, can stop tomorrow blood cultures drawn, no growth no specific symptoms of fever/chills consult oncology -- no need for Neupogen at this time, follow counts - chemotherapy induced Pancytopenia: Hb dropped to 7.0 from 8.5 discussed possible transfusion of irradiated PRBC, he would like to avoid if possible but not opposed suggested we repeat counts tomorrow, if lower than 7.0 then would transfuse, he agreed with plan platelets lower at 90 monitor CBC daily - Hypoglycemia: not eating as well as normal past day sugars 88 this AM but then above 200 this afternoon increase lantus to 30 units qHS Novolog SS with correction factor 30 and carb ratio of 10 eating quite well, all of his meals - Small cell lung cancer: consult oncology, last chemo was Saturday this week hold on radiation therapy due to low blood counts today - Hypomagnesemia replaced with mag oxide 400mg daily - Idiopathic pulmonary fibrosis, chronic hypoxic respiratory failure continue supplemental oxygen, stable on 4-5L - Recent paroxysmal afib with RVR continue Atenolol and Diltiazem sinus with 1st degree AV block on admission, examines regular today discussion last admission regarding anticoagulation, decided that risk of bleeding too high follows with [facility] cardiology - Weakness, fall, no evidence of syncope, never lost consciousness likely due to deconditioning from cancer treatment consult PT/OT, appreciate their help DVT prophylaxis: Heparin SC, follow platelets, if they drop lower then hold on chemical prophylaxis Full code, discussed with patient and family
[2018-01-03] MEDS ORDERED: NURSING VERBAL MED ORDER ONE (17:45)
[2018-01-03] MEDS: ALBUTEROL 0.083% NEBU SOLN 3 ML VIAL INH SCH (19:31)
[2018-01-03] MEDS: ATORVASTATIN 40 MG TAB PO SCH (20:24)
[2018-01-03] MEDS: INSULIN GLARGINE SOLOSTAR 100 UNITS/ML 3 ML PEN SC SCH (20:53)
[2018-01-04] VITALS (21 sets, daily range): BP systolic 101–145; BP diastolic 54–74; PULSE 68–80; TEMP 36.2–37; O2SAT 94–98; BMI 32.6
[2018-01-04] MEDS: CEFEPIME IV 1,000 MG in SYRINGE 0 ML IV SCH ×2 (04:32→15:40)
[2018-01-04] MEDS: HEPARIN SOD 5000 UNIT/0.5 ML CARP SQ SCH ×3 (06:10→21:18)
[2018-01-04 06:24] LABS: HEMATOCRIT 20.9 % (42-52); HEMOGLOBIN 6.9 g/dL (14.0-18.0); MEAN CELL VOLUME 89.3 fL (80-100); MEAN CORPUSCULAR HEMOGLOBIN 29.5 pg (25-34); MEAN PLATELET VOLUME 9.6 fL (7.4-10.4); NUCLEATED RED BLOOD CELL ABS 0.03 K/uL (0-0); PLATELET COUNT 102 K/uL (130-400); RED CELL DISTRIBUTION WIDTH CV 16.9 % (11.5-14.5); RED CELL DISTRIBUTION WIDTH SD 52.2 fL (36.4-46.3)
[2018-01-04 06:26] LABS: CALCIUM 7.3 mg/dl (8.5-10.1); CREATININE 0.89 mg/dl (0.60-1.40); POTASSIUM 4.1 mmol/L (3.5-5.1)
[2018-01-04 06:47] LABS: BASO ABS # 0.01 K/uL (0-0.2); EOS ABS # 0.01 K/uL (0-0.5); IG# 0.01 K/uL (0.00-0.02); LYMPH ABS # 0.17 K/uL (1.2-3.4); MONO ABS # 0.04 K/uL (0.11-0.59); NEUT ABS # 0.26 K/uL (1.4-6.5)
[2018-01-04] MEDS: UMECLIDINIUM-VILANTEROL (ANORO) INH SCH (07:54)
[2018-01-04] MEDS: PANTOprazole SOD 40 MG TAB PO SCH (07:54)
[2018-01-04] MEDS: DILTIAZEM HCL 120 MG CAPCR PO SCH (07:56)
[2018-01-04] MEDS: MAGNESIUM OXIDE 400 MG TAB PO SCH (07:56)
[2018-01-04] MEDS: ASPIRIN 81 MG ECTAB PO SCH (08:01)
[2018-01-04] MEDS: INSULIN ASPART 100 UNITS/ML 3 ML PEN SC SCH ×4 (09:02→21:00)
[2018-01-04] MEDS ORDERED: FILGRASTIM 300 MCG/ML 1 ML VIAL SQ ONE (10:30)
[2018-01-04] MEDS: ALBUTEROL 0.083% NEBU SOLN 3 ML VIAL INH SCH (18:57)
--- NOTE | 2018-01-04 20:10 | Progress Note ---
Subjective Date of Service: Jan 04, 2018. Subjective Pt evaluation today including: conversation w/ patient, conversation w/ family , physical exam, lab review, review of inpatient medication list Pain: no pain PO Intake: adequate Voiding: no voiding problems patient feeling well, left leg not hurting as much, balance and energy better reviewed labs, Hb down to 6.9, WBC still 0.5 with neutropenia, platelets 102 discussed transfusing two units, patient agreed discussed giving Neupogen, he agreed visited later in the day, tolerating transfusions well Problem List Medical Problems: (1) Atrial fibrillation with RVR Status: Acute (2) Cystic fibrosis Status: Acute (3) Fall Status: Acute (4) Head injury, closed Status: Acute (5) Hypomagnesemia Status: Acute (6) Hypomagnesemia Status: Acute (7) Hypotension Status: Acute (8) Hypoxia Status: Acute (9) Lung neoplasm Status: Acute (10) Near syncope Status: Acute (11) Pancytopenia Status: Acute (12) Pneumonia Status: Acute Review of Systems Constitutional: + weakness Respiratory: + dyspnea on exertion Neurologic: + weakness All Other Systems: Reviewed and Negative Medications Current Inpatient Medications Medications (Trade) Dose Ordered Sig/Sharee Route Start Time Stop Time Status Last Admin Dose Admin Heparin Sodium (Porcine) (Heparin Sq 5000 Unit/0.5ml) 5,000 unit Q8H SQ 01/02/18 22:00 02/01/18 16:59 01/04/18 14:17 5,000 UNIT Acetaminophen (Tylenol Tab) 650 mg Q4H PRN PO 01/02/18 17:00 02/01/18 16:59 01/03/18 04:13 650 MG Polyethylene (Miralax Powder Packet) 17 gm DAILY PRN PO 01/02/18 17:00 02/01/18 16:59 Ondansetron HCl (Zofran Inj) 4 mg Q6H PRN IV 01/02/18 17:00 02/01/18 16:59 Cefepime HCl 1000 mg/Syringe 11 ml @ 5.5 mls/min Q12H IV 01/03/18 04:00 01/05/18 03:59 01/04/18 15:40 5.5 MLS/MIN Albuterol Sulfate (Ventolin 0.083% 2.5MG/3ML Neb) 2.5 mg HS INH 01/02/18 21:00 02/01/18 20:59 01/04/18 18:57 2.5 MG Aspirin (Ecotrin Tab) 81 mg QAM PO 01/03/18 08:00 02/02/18 08:59 01/04/18 08:01 81 MG Atenolol (Tenormin Tab) 25 mg DAILY PO 01/03/18 08:00 02/02/18 08:59 01/04/18 07:56 25 MG Atorvastatin Calcium (Lipitor Tab) 40 mg HS PO 01/02/18 21:00 02/01/18 20:59 01/03/18 20:24 40 MG Diltiazem HCl (Cardizem Cd Cap) 120 mg DAILY PO 01/03/18 08:00 02/02/18 08:59 01/04/18 07:56 120 MG Pantoprazole Sodium (Protonix Tab) 40 mg DAILY PO 01/03/18 08:00 02/02/18 08:59 01/04/18 07:54 40 MG Insulin Aspart (novoLOG ASPART) SLIDING SCALE G... ACHS SC 01/02/18 21:00 02/01/18 20:59 01/04/18 18:40 4 UNITS Glucose (Glucose 40% Gel) 15-30 GRAMS 15 GRAMS... UD PRN PO 01/02/18 17:15 02/01/18 17:14 Glucose (Glucose Chew Tab) 4-8 Tablets 4 Tabl... UD PRN PO 01/02/18 17:15 02/01/18 17:14 Dextrose (Dextrose 50% 50ML Syringe) 25-50ML 25ML FOR ... UD PRN IV 01/02/18 17:15 02/01/18 17:14 Glucagon (Glucagon Inj) 1 mg UD PRN IM 01/02/18 17:15 02/01/18 17:14 Carbohydrates (Carbohydrates For Hypoglycemia) 15-30 GRAMS 15 grams if BSG 54-69... UD PRN PO 01/02/18 17:15 02/01/18 17:14 Magnesium Oxide (Mag-Ox Tab) 400 mg QAM PO 01/03/18 08:00 02/02/18 07:59 01/04/18 07:56 400 MG Insulin Glargine (Lantus Solostar Pen) 30 units HS SC 01/03/18 21:00 02/01/18 20:59 01/03/18 20:53 30 UNITS Sodium Chloride (Woodson Nasal Faulkner) 1 sprays PRN PRN NA 01/03/18 13:00 02/02/18 12:59 Heparin Sodium (Porcine) (Heparin 100 Unit/ml 5ml Flush) 5 ml PRN PRN IV 01/03/18 18:00 02/02/18 17:59 01/04/18 19:13 5 ML Objective Vital Signs Date Time Temp Pulse Resp B/P (MAP) Pulse Ox O2 Delivery O2 Flow Rate FiO2 01/04/18 18:58 80 18 94 Nasal Cannula 4.0 01/04/18 17:05 36.4 72 18 138/74 97 4.0 01/04/18 16:05 36.3 74 17 125/67 94 4.0 01/04/18 16:00 96 Nasal Cannula 5.0 01/04/18 15:35 36.3 75 18 129/67 98 4.0 01/04/18 15:20 36.2 77 19 145/72 97 01/04/18 15:04 36.5 76 20 132/74 97 5.0 01/04/18 14:20 36.5 75 17 127/67 97 5.0 01/04/18 13:20 36.6 75 18 131/69 96 01/04/18 12:10 36.4 69 18 118/65 96 5.0 01/04/18 11:55 36.5 69 22 115/66 97 5.0 01/04/18 11:40 36.3 68 17 127/70 96 5.0 01/04/18 11:25 36.5 70 18 119/63 95 5.0 01/04/18 11:10 36.3 70 18 125/70 97 5.0 01/04/18 11:09 36.3 70 18 125/70 97 5.0 01/04/18 08:30 96 Nasal Cannula 01/04/18 07:51 37.0 71 18 132/60 (84) 96 Nasal Cannula 5.0 01/04/18 03:45 36.6 74 20 101/54 (70) 95 Nasal Cannula 5.0 Humidified Oxygen 01/04/18 00:30 95 Nasal Cannula 5.0 01/04/18 00:14 36.6 80 18 105/54 (71) 95 5.0 Physical Exam General Appearance: WD/WN, no apparent distress Eyes: normal inspection, EOMI, sclerae normal ENT: normal ENT inspection, hearing grossly normal, pharynx normal Neck: supple, no adenopathy, no JVD, trachea midline Respiratory/Chest: chest non-tender, lungs clear, normal breath sounds, no respiratory distress, no accessory muscle use Cardiovascular: regular rate, rhythm, no edema, no gallop, no JVD, no murmur Abdomen: normal bowel sounds, non tender, soft, no organomegaly Extremities: normal range of motion, non-tender, normal inspection, no pedal edema, no calf tenderness, pelvis stable 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, no motor/sensory deficits, alert, normal mood/affect, oriented x 3 Skin: warm/dry, no rash, + pallor Laboratory Results Last 24 Hours Test 01/04/18 05:31 01/04/18 08:08 01/04/18 12:08 01/04/18 16:56 White Blood Count 0.50 K/uL Red Blood Count 2.34 M/uL Hemoglobin 6.9 g/dL Hematocrit 20.9 % Mean Corpuscular Volume 89.3 fL Mean Corpuscular Hemoglobin 29.5 pg Mean Corpuscular Hemoglobin Concent 33.0 g/dl Platelet Count 102 K/uL Mean Platelet Volume 9.6 fL Neutrophils (%) (Auto) 52.0 % Lymphocytes (%) (Auto) 34.0 % Monocytes (%) (Auto) 8.0 % Eosinophils (%) (Auto) 2.0 % Basophils (%) (Auto) 2.0 % Neutrophils # (Auto) 0.26 K/uL Lymphocytes # (Auto) 0.17 K/uL Monocytes # (Auto) 0.04 K/uL Eosinophils # (Auto) 0.01 K/uL Basophils # (Auto) 0.01 K/uL RDW Standard Deviation 52.2 fL RDW Coefficient of Variation 16.9 % Immature Granulocyte % (Auto) 2.0 % Immature Granulocyte # (Auto) 0.01 K/uL Nucleated RBC Absolute Count (auto) 0.03 K/uL Nucleated Red Blood Cells % 5.1 % Basophilic Stippling 1+ Anisocytosis PRESENT Sodium Level 137 mmol/L Potassium Level 4.1 mmol/L Chloride Level 109 mmol/L Carbon Dioxide Level 24 mmol/L Anion Gap 4.0 mmol/L Blood Urea Nitrogen 19 mg/dl Creatinine 0.89 mg/dl Est Creatinine Clear Calc Drug Dose 87.2 ml/min Estimated GFR () 96.3 Estimated GFR (Non- 83.1 BUN/Creatinine Ratio 21.6 Random Glucose 126 mg/dl Calcium Level 7.3 mg/dl Magnesium Level 1.6 mg/dl Bedside Glucose 92 mg/dl 174 mg/dl 147 mg/dl Assessment and Plan 77 yo male with complicated history of IPF, small cell lung cancer, afib with RVR and now with weakness, pancytopenia, hypoglycemia - Neutropenia due to anti-neoplastic therapy neutropenic precautions, WBC still low at 0.5 today Cefepime 1gm IV q12 prophylactically for 48 hours, can stop today, no fever blood cultures drawn, no growth no specific symptoms of fever/chills give Neupogen today - chemotherapy induced Pancytopenia: Hb dropped to 6.9 today, give two units irradiated PRBC, tolerated well, repeat H/H in the morning platelets up slightly at 102 monitor CBC daily - Hypoglycemia: no further episodes, eating well in the hospital continue lantus 30 units qHS Novolog SS with correction factor 30 and carb ratio of 10 - Small cell lung cancer: consult oncology, last chemo was Saturday, 6 days ago hold on radiation therapy due to low blood counts today anticipate holding chemo on Saturday but will discuss with oncology - Hypomagnesemia replaced with mag oxide 400mg daily - Idiopathic pulmonary fibrosis, chronic hypoxic respiratory failure continue supplemental oxygen, stable on 4-5L - Recent paroxysmal afib with RVR continue Atenolol and Diltiazem sinus with 1st degree AV block on admission, examines regular today discussion last admission regarding anticoagulation, decided that risk of bleeding too high follows with [facility] cardiology - Weakness, fall, no evidence of syncope, never lost consciousness likely due to deconditioning from cancer treatment consult PT/OT, appreciate their help DVT prophylaxis: Heparin SC Full code, discussed with patient and family
[2018-01-04] MEDS: ATORVASTATIN 40 MG TAB PO SCH (21:13)
[2018-01-04] MEDS: INSULIN GLARGINE SOLOSTAR 100 UNITS/ML 3 ML PEN SC SCH (21:17)
[2018-01-05 03:55] VITALS: BP 123/65; PULSE 88; TEMP 36.7; O2SAT 90
[2018-01-05] MEDS: HEPARIN SOD 5000 UNIT/0.5 ML CARP SQ SCH (05:42)
[2018-01-05 06:37] VITALS: Ht 180.3 cm; Wt 106.9 kg
[2018-01-05 06:44] LABS: HEMATOCRIT 27.4 % (42-52); HEMOGLOBIN 9.1 g/dL (14.0-18.0); MEAN CELL VOLUME 88.1 fL (80-100); MEAN CORPUSCULAR HEMOGLOBIN 29.3 pg (25-34); MEAN CORPUSCULAR HGB CONC 33.2 g/dl (32-36); MEAN PLATELET VOLUME 9.9 fL (7.4-10.4); NUCLEATED RED BLOOD CELL ABS 0.08 K/uL (0-0); PLATELET COUNT 112 K/uL (130-400); RED CELL DISTRIBUTION WIDTH CV 17.1 % (11.5-14.5); RED CELL DISTRIBUTION WIDTH SD 52.5 fL (36.4-46.3); WHITE BLOOD COUNT 1.99 K/uL (4.8-10.8)
[2018-01-05 07:09] LABS: CALCIUM 7.4 mg/dl (8.5-10.1); CREATININE 0.87 mg/dl (0.60-1.40); POTASSIUM 3.9 mmol/L (3.5-5.1)
[2018-01-05 07:16] LABS: BASO % 0.5 %; BASO ABS # 0.01 K/uL (0-0.2); EOS % 0.5 %; EOS ABS # 0.01 K/uL (0-0.5); IG# 0.06 K/uL (0.00-0.02); LYMPH % 16.1 %; LYMPH ABS # 0.32 K/uL (1.2-3.4); MONO % 9.5 %; MONO ABS # 0.19 K/uL (0.11-0.59); NEUT % 70.4 %
[2018-01-05] MEDS: PANTOprazole SOD 40 MG TAB PO SCH (07:49)
[2018-01-05] MEDS: ASPIRIN 81 MG ECTAB PO SCH (07:49)
[2018-01-05] MEDS: DILTIAZEM HCL 120 MG CAPCR PO SCH (07:49)
[2018-01-05] MEDS: MAGNESIUM OXIDE 400 MG TAB PO SCH (07:50)
[2018-01-05] MEDS: UMECLIDINIUM-VILANTEROL (ANORO) INH SCH (07:51)
[2018-01-05 08:08] VITALS: BP 121/59; PULSE 107; TEMP 36.4; O2SAT 95
[2018-01-05] MEDS: INSULIN ASPART 100 UNITS/ML 3 ML PEN SC SCH ×2 (09:03→12:31)
--- NOTE | 2018-01-05 10:24 | Discharge Instructions ---
Discharge Instructions Date of Service Jan 05, 2018. Admission Reason for Admission: Hypoglycemia, Neutropenia Discharge Discharge Diagnosis / Problem: Pancytopenia due to chemotherapy, weakness, fall Discharge Goals Goal(s): Improve function, Improve disease control, Therapeutic intervention ( radiation tomorrow) Activity Recommendations Activity Limitations: resume your previous activity . Instructions / Follow-Up Instructions / Follow-Up Medications: no changes In summary, you had weakness, likely attributed to anemia, chemotherapy and radiation much improved all three of your cell lines are better, WBC up to 1.9, Hb at 9.1 and platelets [address] Goncalves, he plans to hold your last chemotherapy treatment he wants you to finish your last 5 radiation treatments, starting tomorrow he will see you in the office in one month to discuss the next round of consolidative chemotherapy FOLLOW UP - radiation oncology tomorrow as typically scheduled - Dr. Goncalves in one month Current Hospital Diet Patient's current hospital diet: Diabetes Type 2 Diet Discharge Diet Recommended Diet: Diabetes Type 2 Diet Procedures Procedures Performed: transfusion two units of PRBC Pending Studies Studies pending at discharge: no Laboratory Results Hemoglobin A1c Test 11/24/17 05:50 Range/Units Estimated Average Glucose 151 mg/dl Hemoglobin A1c 6.9 H 4.5-5.6 % Medical Emergencies . Who to Call and When: Medical Emergencies: If at any time you feel your situation is an emergency, please call 911 immediately. . Non-Emergent Contact Non-Emergency issues call your: Oncologist Call Non-Emergent contact if: you have any medication questions . . "Provider Documentation" section prepared by Sanket Wilson. . [place] Drug Monitoring Program Search Results: no issues identified
--- NOTE | 2018-01-05 11:30 | HEME/ONC PROGRESS NOTE ---
DATE: 01/05/2018 DATE: 01/05/2018 DIAGNOSES: 1. Status post fall, questionable syncope. 2. Hyperglycemia. 3. Hypomagnesemia. 4. Locally advanced non-small cell lung cancer, actively receiving concurrent chemoradiation therapy. 5. Type 2 diabetes mellitus. SUBJECTIVE: I had the pleasure of visiting with Nehemiah at the bedside today. Dr. Wilson, the hospitalist, is reporting he is vastly improved, tolerating his diet, and ambulating with the aid of a walker. He is scheduled to resume chemoradiation tomorrow. I see no reason why he cannot be discharged today. PHYSICAL EXAMINATION: VITAL SIGNS: Temperature 36.4, pulse 107, respiratory rate 20, blood pressure 121/69. SKIN: Again, he has healing abrasions in the right side of his forehead, otherwise no rash or lesion. HEENT: Oral mucosa without erythema or ulceration. NECK: Supple. HEART: Regular rate and rhythm. No clicks, rubs, murmurs, gallops. LUNGS: Clear to auscultation bilaterally. ABDOMEN: Soft, nontender, nondistended, without palpable hepatosplenomegaly. EXTREMITIES: No calf tenderness or swelling. No clubbing, cyanosis, or edema. NEUROLOGIC: Grossly intact. LABORATORY DATA: WBC count 1990, hemoglobin 9.1, platelet count 112,000. Sodium 138, potassium 3.9, chloride 109, carbon dioxide 22, creatinine 0.87, BUN 18. IMPRESSION: 1. Status post fall, questionable syncope. 2. Electrolyte dysfunction. 3. Locally advanced non-small cell lung cancer. 4. Type 2 diabetes mellitus. PLAN: I had the pleasure of visiting with Mr. Carlson today. Clearly, I agree. I believe he has improved dramatically and able to go home today. I will forego his final course of weekly chemotherapy. He will complete radiation therapy this week and then plan to proceed with consolidative chemotherapy thereafter. Therefore, I will schedule Mr. Carlson for about 3 weeks from today to evaluate him to proceed with chemotherapy. He will finish his 5 fractions of radiation therapy this week. I will discuss my recommendations with Dr. Bender. Thank you for allowing me to participate in Abhinav's care. If you have any questions or concerns, feel free to contact me at any time.
[2018-01-05 11:34] VITALS: BP 121/59; PULSE 107; TEMP 36.4; O2SAT 95
--- NOTE | 2018-01-13 08:09 | Discharge Summary ---
Discharge Summary Date of Service Jan 05, 2018. Discharge Summary Admission Date: Jan 02, 2018 at 16:53 Discharge Date: Jan 05, 2018 Discharge Disposition: Home with services Principal Diagnosis: Pancytopenia due to chemotherapy Problems/Secondary Diagnoses: Neutropenia due to chemotherapy Weakness with fall Hypoglycemia Small cell lung cancer undergoing chemotherapy Pulmonary fibrosis Chronic hypoxic respiratory failure Immunizations: Have You Had Influenza Vaccine: No History of Tetanus Vaccine?: Yes History of Pneumococcal: Yes History of Hepatitis B Vaccine: Unknown Procedures: Blood transfusion x 2 Consultations: Oncology Medication Reconciliation Continued Medications: Albuterol Sulf (Albuterol Sulfate) 2.5 Mg/3 Ml Nebu 2.5 MG INH HS Aspirin Enteric Coated (Ecotrin Or Generic) 81 Mg Tab 81 MG PO QAM, TAB Atenolol (Atenolol) 50 Mg Tab 25 MG PO DAILY Atorvastatin (Lipitor) 40 Mg Tab 40 MG PO HS, TAB Diltiazem Hcl Coated Beads (Cartia Xt) 120 Mg Cap 120 MG PO DAILY Furosemide (Lasix) 20 Mg Tab 20 MG PO Q2D, TAB Insulin Aspart (Novolog Flexpen) 100 Units/Ml Inj SQ UD take 29 units with breakfast plus SLIDING SCALE take 24 units with lunch plus sliding scale take 18 units with supper plus sliding scale Insulin Glargine (Basaglar Kwikpen) 100 Unit/Ml Inj 1 DOSE SQ UD take 50units at bedtime on saturday and saturday on all other days take 40units at bedtime Metformin Hcl (Glucophage) 850 Mg Tab 850 MG PO QPM, TAB Omeprazole (Prilosec) 20 Mg Cap 20 MG PO DAILY Pioglitazone Hcl (Pioglitazone Hcl) 30 Mg Tab 30 MG PO DAILY Umeclidinium-Vilanterol (Anoro Ellipta 62.5-25 Mcg/INH) 1 Aer Aer 1 PUFF INH DAILY Discharge Exam Patient feeling great the day of discharge, Hb up after transfusion, no longer neutropenic after Neupogen. Eating well. Agrees to some extra help at home with services. Family okay with discharge plan. Met with Dr. Goncalves, he plans to cancel last chemotherapy session, just complete radiation and then follow up with him in a month. Review of Systems: Constitutional: No fever, No chills, No sweats, No weight loss, No weakness , No fatigue, No problem reported Eyes: No worsening of vision, No eye pain, No redness, No discharge, No diplopia, No problem reported ENT: No hearing loss, No unusual epistaxis, No nasal symptoms, No sore throat, No tinnitus, No dental problems, No trouble swallowing, No problem reported Respiratory: + dyspnea on exertion (chronic), No cough, No sputum, No wheezing, No shortness of breath, No dyspnea at rest, No hemoptysis, No problem reported Cardiovascular: No chest pain, No orthopnea, No PND, No edema, No claudication, No palpitations, No problem reported Abdomen: No pain, No nausea, No vomiting, No diarrhea, No constipation, No GI bleeding, No problem reported Musculoskeletal: No joint pain, No muscle pain, No swelling, No calf pain, No problem reported Genitourinary - Male: No hematuria, No dysuria, No urinary frequency, No urinary urgency Neurologic: + weakness, No memory loss, No paralysis, No numbness/tingling, No vertigo, No balance problems, No problem reported Psychiatric: No depression symptoms, No anhedonism, No anxiety, No insomnia , No substance abuse, No problem reported Endocrine: No fatigue, No excessive thirst, No excessive urination, No problem reported Hematologic / Lymphatic: No abnormal bleeding/bruising, No clotting problems , No swollen lymph nodes, No night sweats, No problem reported Integumentary: No rash, No itch, No new/changing skin lesions, No color change, No bleeding, No problem reported Physical Exam: General Appearance: WD/WN, no apparent distress Eyes: normal inspection, EOMI, sclerae normal ENT: normal ENT inspection, hearing grossly normal, pharynx normal Neck: supple, no adenopathy, no JVD, trachea midline Respiratory/Chest: chest non-tender, lungs clear, normal breath sounds, no respiratory distress, no accessory muscle use Cardiovascular: regular rate, rhythm, no edema, no gallop, no JVD, no murmur , normal peripheral pulses Abdomen / GI: normal bowel sounds, non tender, soft, no organomegaly Extremities: normal inspection, no calf tenderness, normal capillary refill , no pedal edema, normal range of motion, pelvis stable 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, no motor/sensory deficits , alert, normal mood/affect, normal reflexes, oriented x 3 Skin: normal color, warm/dry, no rash Hospital Course 77 yo male with complicated history of IPF, small cell lung cancer, afib with RVR and now with weakness, pancytopenia, hypoglycemia - Neutropenia due to anti-neoplastic therapy WBC up to 1.99 and neutrophils 1.44 after single dose of Neupogen Cefepime 1gm IV q12 prophylactically for 48 hours, stopped, no fevers, blood cultures negative - chemotherapy induced Pancytopenia: Hb dropped to 6.9 day prior to discharge, two units irradiated PRBC transfused, tolerated well Hb up to 9.1 the day of discharge platelets above 100 - Hypoglycemia: no further episodes, eating well in the hospital continue lantus 30 units qHS Novolog SS with correction factor 30 and carb ratio of 10 - Small cell lung cancer: consult oncology, last chemo was Saturday, 7 days ago will complete 5 more days of radiation therapy d/w Dr. Goncalves, plans to cancel last chemotherapy session, follow up with him in one month for second cycle of chemotherapy, salvage therapy - Hypomagnesemia replaced with mag oxide 400mg daily - Idiopathic pulmonary fibrosis, chronic hypoxic respiratory failure continue supplemental oxygen, stable on 4-5L - Recent paroxysmal afib with RVR continue Atenolol and Diltiazem sinus with 1st degree AV block on admission, examines regular today discussion last admission regarding anticoagulation, decided that risk of bleeding too high follows with [facility] cardiology - Weakness, fall, no evidence of syncope, never lost consciousness likely due to deconditioning from cancer treatment consult PT/OT, appreciate their help okay to go home with therapy, home nursing, family support DVT prophylaxis: Heparin SC Full code, discussed with patient and family Total Time Spent: Greater than 30 minutes This includes examination of the patient, discharge planning, medication reconciliation, and communication with other providers. Discharge Instructions Please refer to the electronic Patient Visit Report (Discharge Instructions) for additional information. Follow-Up Dr. Goncalves in one month Additional Copies To Liliana Oliver M.D.; Stalin Goncalves D.O.
== END 2018-01-05 15:00 | disposition home or self-care (01) | DRG 91 ==
LOC: EDBD 14:44 → C.EDB 14:45 → C.4E 16:53 → UNDOADMIN 16:53 → ENRESERV 17:04
PROVIDERS: ADMIT Internal Medicine; ATTEND Internal Medicine
DX: R29.6 Repeated falls (principal); D61.810 Antineoplastic chemotherapy induced pancytopenia; C34.31 Malignant neoplasm of lower lobe, right bronchus or lung; J96.11 Chronic respiratory failure with hypoxia; E84.9 Cystic fibrosis, unspecified; R53.1 Weakness; T45.1X5A Adverse effect of antineoplastic and immunosuppressive drugs, initial encounter; E11.649 Type 2 diabetes mellitus with hypoglycemia without coma; E83.42 Hypomagnesemia; J44.9 Chronic obstructive pulmonary disease, unspecified; J84.112 Idiopathic pulmonary fibrosis; I11.0 Hypertensive heart disease with heart failure; I50.9 Heart failure, unspecified; I48.0 Paroxysmal atrial fibrillation; E78.00 Pure hypercholesterolemia, unspecified; Z79.899 Other long term (current) drug therapy; Z79.4 Long term (current) use of insulin; Z79.82 Long term (current) use of aspirin; Z99.81 Dependence on supplemental oxygen; Z87.891 Personal history of nicotine dependence; Z80.1 Family history of malignant neoplasm of trachea, bronchus and lung; Z80.0 Family history of malignant neoplasm of digestive organs; Z80.7 Family history of other malignant neoplasms of lymphoid, hematopoietic and related tissues; Z83.3 Family history of diabetes mellitus; Z82.49 Family history of ischemic heart disease and other diseases of the circulatory system; Z51.0 Encounter for antineoplastic radiation therapy

== ENCOUNTER → 2018-01-10 | Outpatient (CLI) | payer OTHER ==
[2018-01-10 12:44] LABS: ALKALINE PHOSPHATASE 148 U/L (45-117); ALT/SGPT 22 U/L (12-78); AST/SGOT 18 U/L (15-37); BLOOD UREA NITROGEN 13 mg/dl (7-18); CALCIUM 8.1 mg/dl (8.5-10.1); CARBON DIOXIDE 25 mmol/L (21-32); CREATININE 0.79 mg/dl (0.60-1.40); GLUCOSE 96 mg/dl (70-99); POTASSIUM 4.6 mmol/L (3.5-5.1); SODIUM 138 mmol/L (136-145); TOTAL PROTEIN 5.6 gm/dl (6.4-8.2)
[2018-01-10 12:54] LABS: HEMATOCRIT 29.2 % (42-52); HEMOGLOBIN 9.4 g/dL (14.0-18.0); MEAN CELL VOLUME 92.1 fL (80-100); MEAN CORPUSCULAR HEMOGLOBIN 29.7 pg (25-34); MEAN CORPUSCULAR HGB CONC 32.2 g/dl (32-36); MEAN PLATELET VOLUME 9.6 fL (7.4-10.4); NUCLEATED RED BLOOD CELL ABS 0.05 K/uL (0-0); PLATELET COUNT 154 K/uL (130-400); RED CELL DISTRIBUTION WIDTH CV 19.4 % (11.5-14.5); RED CELL DISTRIBUTION WIDTH SD 57.3 fL (36.4-46.3); WHITE BLOOD COUNT 2.14 K/uL (4.8-10.8)
[2018-01-10 12:55] LABS: BASO % 0.5 %; BASO ABS # 0.01 K/uL (0-0.2); IG# 0.09 K/uL (0.00-0.02); LYMPH % 20.6 %; LYMPH ABS # 0.44 K/uL (1.2-3.4); MONO % 25.7 %; MONO ABS # 0.55 K/uL (0.11-0.59); NEUT ABS # 1.05 K/uL (1.4-6.5)
== END | disposition home or self-care (01) ==
LOC: C.LABSPEC 11:43
PROVIDERS: ATTEND Internal Medicine Hematology & Oncology
DX: C34.90 Malignant neoplasm of unspecified part of unspecified bronchus or lung (principal)